=== PATIENT | male | born 1940 | race Caucasian/White ===

== ENCOUNTER 2020-10-15 07:32 | Outpatient (REF) | payer MEDICARE, SELFPAY ==
[2020-10-15 08:28] LABS: MANUAL DIFF FLAG NO
[2020-10-15 08:31] LABS: Basophils Absolute Auto 0.1 X10*3/uL (0.0-0.2); Basophils Percent Auto 0.8 % (0-2); Eosinophils Absolute Auto 0.2 X10*3/uL (0.0-0.4); Eosinophils Percent Auto 2.4 % (0-4); Hematocrit 44.3 % (42-52); Hemoglobin 14.6 g/dl (14.0-18.0); Imm Gran Abs Auto 0.02 X10*3/uL (0.00-0.03); Imm Gran Pct Auto 0.3 % (0.0-0.4); Lymphocytes Absolute Auto 2.1 X10*3/uL (1.2-4.9); Lymphocytes Percent Auto 34.4 % (20-40); Mean Corpuscular Hemoglobin 29.9 pg (27.0-33.0); Mean Corpuscular Volume 90.8 fL (80-98); Mean Platelet Volume 9.8 fL (9.4-12.4); Monocytes Absolute Auto 0.7 X10*3/uL (0.1-1.2); Monocytes Percent Auto 10.6 % (2-11); Neutrophils Absolute Auto 3.2 X10*3/uL (2.0-8.3); Neutrophils Percent Auto 51.5 % (45-73); Platelet Count 156 X10*3/uL (160-400); Red Blood Count 4.88 X10*6/uL (4.60-5.80); Red Cell Distribution Width 13.5 % (11.0-16.0); White Blood Count 6.2 X10*3/uL (4.8-10.8)
[2020-10-15 08:41] LABS: Estimated Average Glucose 108 mg/dL; Hemoglobin A1c % 5.4 %
[2020-10-15 08:54] LABS: Alanine Aminotransferase 12 U/L (0-40); Albumin Level 4.2 g/dL (3.5-5.0); Alkaline Phosphatase 88 U/L (39-117); Anion Gap 11 (12-20); Aspartate Amino Transferase 11 U/L (5-37); Bilirubin Total 0.8 mg/dL (0.0-1.0); Blood Urea Nitrogen 24 mg/dL (9-16); Calcium 9.5 mg/dL (8.4-10.2); Carbon Dioxide 29 mmol/L (22-29); Chloride 104 mmol/L (96-108); Cholesterol 141 mg/dL; Estimated Glomerular Filt Rate 53; Glucose Fasting 102 mg/dL (60-99); HDL Cholesterol 32 mg/dL; LDL Cholesterol Calculated 78 mg/dl; Potassium 4.1 mmol/l (3.3-5.1); Sodium 140 mmol/L (135-145); Total Protein 7.1 g/dL (6.5-8.0); Triglycerides 157 mg/dL
[2020-10-15 09:15] LABS: Prostate Specific Antigen Scr 1.55 ng/mL (<0.05-4.0)
[2020-10-15 11:50] LABS: Glucose Urine UA NEG (NEG); Leukocyte Esterase Urine NEG (NEG); Nitrite Urine NEG (NEG); Specific Gravity - Urine 1.025 (1.005-1.025); Urine Blood NEG (NEG); Urine Ketones NEG (NEG); Urine Protein NEG (NEG-TRACE)
[2020-10-15 11:53] LABS: Appearance Urine CLEAR; Color Urine YELLOW
[2020-10-15 12:11] LABS: Creatinine Urine 159.48 mg/dL; Microalbum/Creatinine Ratio Ur 4.3 ug/mg cr
== END 2020-10-15 07:33 | disposition home or self-care (01) ==
LOC: HO.LAB 07:32
PROVIDERS: Visit Provider Internal Medicine
DX: I10 Essential (primary) hypertension (principal); D69.6 Thrombocytopenia, unspecified; E78.6 Lipoprotein deficiency; R79.9 Abnormal finding of blood chemistry, unspecified; E11.65 Type 2 diabetes mellitus with hyperglycemia
CPT/HCPCS: 36415; 80053; 80061; 81003; 82043; 83036; 84153; 85025

== ENCOUNTER 2021-05-07 10:09 | Outpatient (REF) | payer MEDICARE, SELFPAY ==
[2021-05-07 11:11] LABS: Uric Acid 9.4 mg/dL (3.4-7.0)
== END 2021-05-07 10:10 | disposition home or self-care (01) ==
LOC: HO.LNP 10:09
PROVIDERS: Visit Provider Internal Medicine
DX: Z87.39 Personal history of other diseases of the musculoskeletal system and connective tissue (principal)
CPT/HCPCS: 84550

== ENCOUNTER 2021-08-30 15:08 | Outpatient (REF) | payer MEDICARE, SELFPAY ==
--- NOTE | ~2021-08-30 | XR_ITS ---
EXAMINATION: XR CHEST CLINICAL INFORMATION: Covid 19 COMPARISON: None TECHNIQUE: 2 views of the chest were obtained. FINDINGS: The lungs are well expanded. Mild patchy opacities at the lung bases. No pleural effusion. No edema. No pneumothorax. The cardiomediastinal silhouette is within normal limits. Degenerative changes throughout the spine. XR/XR chest 2V IMPRESSION: Mild patchy basilar opacities could be infectious or inflammatory.
== END 2021-08-30 15:09 | disposition home or self-care (01) ==
LOC: HO.XRAY 15:08
PROVIDERS: PCP Internal Medicine; Visit Provider Internal Medicine
DX: U07.1 COVID-19 (principal)
CPT/HCPCS: 71046

== ENCOUNTER 2021-09-16 15:07 | Outpatient (REF) | payer MEDICARE, SELFPAY ==
--- NOTE | ~2021-09-16 | XR_ITS ---
EXAMINATION: XR CHEST CLINICAL INFORMATION: Covid infection COMPARISON: Previous chest x-ray 08/30/2021 TECHNIQUE: 2 views of the chest were obtained. FINDINGS: The cardiac and mediastinal contours are stable. There may be a small esophageal hernia. The previously identified increased opacities at the lung bases appear slightly improved. The lungs are otherwise clear. There is no pleural effusion or pneumothorax. There are degenerative changes of the spine and curvature of the lower thoracic and upper lumbar spine to the left. XR/XR chest 2V IMPRESSION: Slightly improved bibasilar opacities from August 2021 exam.
== END 2021-09-16 15:08 | disposition home or self-care (01) ==
LOC: HO.XRAY 15:07
PROVIDERS: PCP Internal Medicine; Visit Provider Internal Medicine
DX: U07.1 COVID-19 (principal)
CPT/HCPCS: 71046

== ENCOUNTER 2021-11-20 14:09 | Outpatient (REF) | payer MEDICARE, SELFPAY ==
--- NOTE | ~2021-11-20 | XR_ITS ---
EXAMINATION: XR CHEST CLINICAL INFORMATION: COVID-19. COMPARISON: 09/16/2021 TECHNIQUE: 2 views of the chest were obtained. FINDINGS: There is improvement in bibasilar disease with no new acute parenchymal disease identified. No pneumothorax or pleural effusion. Heart normal size. No evidence of pulmonary edema. Multilevel degenerative disc disease is seen within the thoracic spine. XR/XR chest 2V IMPRESSION: No significant disease appreciated.
== END 2021-11-20 14:10 | disposition home or self-care (01) ==
LOC: HO.XRAY 14:09
PROVIDERS: PCP Internal Medicine; Visit Provider Internal Medicine
DX: U07.1 COVID-19 (principal)
CPT/HCPCS: 71046

== ENCOUNTER 2021-11-21 10:40 | Outpatient (REF) | payer MEDICARE, SELFPAY ==
[2021-11-21 10:46] LABS: MANUAL DIFF FLAG NO
[2021-11-21 11:14] LABS: Basophils Absolute Auto 0.1 X10*3/uL (0.0-0.2); Basophils Percent Auto 0.9 % (0-2); Eosinophils Absolute Auto 0.4 X10*3/uL (0.0-0.4); Eosinophils Percent Auto 5.3 % (0-4); Hematocrit 45.6 % (42.0-52.0); Hemoglobin 14.7 g/dl (14.0-18.0); Imm Gran Abs Auto 0.02 X10*3/uL (0.00-0.03); Imm Gran Pct Auto 0.3 % (0.0-0.4); Lymphocytes Percent Auto 28.9 % (20-40); Mean Corpuscular HGB Conc 32.2 g/dl (31.0-36.0); Mean Corpuscular Hemoglobin 30.3 pg (27.0-33.0); Monocytes Absolute Auto 0.9 X10*3/uL (0.1-1.2); Neutrophils Absolute Auto 3.5 x10*3/uL (2.0-8.3); Neutrophils Percent Auto 51.6 % (45-73); Platelet Count 175 X10*3/uL (160-400); Red Blood Count 4.85 X10*6/uL (4.60-5.80); Red Cell Distribution Width 13.8 % (11.0-16.0); White Blood Count 6.8 X10*3/uL (4.8-10.8)
[2021-11-21 11:22] LABS: Appearance Urine CLEAR; Color Urine YELLOW; Glucose Urine UA 100 MG/DL (NEG); Leukocyte Esterase Urine NEG (NEG); Nitrite Urine NEG (NEG); PH 5.5 (5.0-8.0); Specific Gravity - Urine >= 1.030 (1.005-1.025); Urine Blood NEG (NEG); Urine Ketones NEG (NEG); Urine Protein NEG (NEG-TRACE)
[2021-11-21 11:29] LABS: Estimated Average Glucose 105 mg/dL; Hemoglobin A1c % 5.3 %
[2021-11-21 11:49] LABS: Creatinine Urine 224.96 mg/dL; Microalbum/Creatinine Ratio Ur 12.8 ug/mg cr
[2021-11-21 12:00] LABS: PSA,Total (Free>4and<10) 1.46 ng/mL (0.00-4.00)
[2021-11-21 12:02] LABS: Alanine Aminotransferase 15 U/L (0-40); Albumin Level 4.1 g/dL (3.5-5.0); Alkaline Phosphatase 87 U/L (39-117); Anion Gap 13 (12-20); Aspartate Amino Transferase 12 U/L (5-37); Bilirubin Total 0.5 mg/dL (0.0-1.0); Blood Urea Nitrogen 19 mg/dL (9-16); Calcium 9.8 mg/dL (8.4-10.2); Carbon Dioxide 26 mmol/L (22-29); Chloride 106 mmol/L (96-108); Cholesterol 151 mg/dL; Estimated Glomerular Filt Rate 55; Glucose Fasting 98 mg/dL (60-99); HDL Cholesterol 30 mg/dL; LDL Cholesterol Calculated 85 mg/dl; Sodium 141 mmol/L (135-145); Triglycerides 182 mg/dL
== END 2021-11-21 10:41 | disposition home or self-care (01) ==
LOC: HO.LNP 10:40
PROVIDERS: Visit Provider Internal Medicine
DX: I10 Essential (primary) hypertension (principal); D69.6 Thrombocytopenia, unspecified; E78.6 Lipoprotein deficiency; R79.9 Abnormal finding of blood chemistry, unspecified; E11.65 Type 2 diabetes mellitus with hyperglycemia; Z12.5 Encounter for screening for malignant neoplasm of prostate
CPT/HCPCS: 80053; 80061; 81003; 82043; 83036; 84153; 85025

== ENCOUNTER 2022-02-20 16:29 | Outpatient (REF) | payer MEDICARE, SELFPAY ==
[2022-02-20 16:33] LABS: MANUAL DIFF FLAG NO
[2022-02-20 16:54] LABS: Basophils Absolute Auto 0.1 X10*3/uL (0.0-0.2); Basophils Percent Auto 0.8 % (0-2); Eosinophils Absolute Auto 0.1 X10*3/uL (0.0-0.4); Eosinophils Percent Auto 1.2 % (0-4); Hematocrit 47.6 % (42.0-52.0); Hemoglobin 15.5 g/dl (14.0-18.0); Imm Gran Abs Auto 0.03 X10*3/uL (0.00-0.03); Imm Gran Pct Auto 0.3 % (0.0-0.4); Lymphocytes Absolute Auto 2.8 X10*3/uL (1.2-4.9); Lymphocytes Percent Auto 31.2 % (20-40); Mean Corpuscular HGB Conc 32.6 g/dl (31.0-36.0); Mean Corpuscular Hemoglobin 30.5 pg (27.0-33.0); Mean Corpuscular Volume 93.7 fL (80.0-98.0); Mean Platelet Volume 10.3 fL (9.4-12.4); Monocytes Absolute Auto 0.8 X10*3/uL (0.1-1.2); Monocytes Percent Auto 8.6 % (2-11); Neutrophils Absolute Auto 5.1 x10*3/uL (2.0-8.3); Neutrophils Percent Auto 57.9 % (45-73); Platelet Count 165 X10*3/uL (160-400); Red Blood Count 5.08 X10*6/uL (4.60-5.80); Red Cell Distribution Width 13.7 % (11.0-16.0); White Blood Count 8.8 X10*3/uL (4.8-10.8)
== END 2022-02-20 16:30 | disposition home or self-care (01) ==
LOC: HO.LNP 16:29
PROVIDERS: Visit Provider Internal Medicine
DX: D69.6 Thrombocytopenia, unspecified (principal)
CPT/HCPCS: 85025

== ENCOUNTER 2022-04-24 09:23 | Outpatient (REF) | payer MEDICARE, SELFPAY ==
--- NOTE | ~2022-04-24 | XR_ITS ---
EXAMINATION: XR SHOULDER, LEFT CLINICAL INFORMATION: Pain left shoulder COMPARISON: None TECHNIQUE: AP external rotation, Grashey, scapular Y, and axillary views of the left shoulder. FINDINGS: There is severe loss of glenohumeral joint space with moderate inferior periarticular spurring. The AC joint space is preserved. No visible acute fracture, dislocation or subluxation. No loose bodies or bony erosive changes. There is mild osteopenia. XR/XR shoulder LT min 2V IMPRESSION: Severe degenerative changes with periapical spurring left glenohumeral joint space. No visible acute fracture or dislocation seen.
== END 2022-04-24 09:24 | disposition home or self-care (01) ==
LOC: HO.XRAY 09:23
PROVIDERS: PCP Internal Medicine; Visit Provider Physical Medicine & Rehabilitation
DX: M25.512 Pain in left shoulder (principal)
CPT/HCPCS: 73030

== ENCOUNTER 2022-11-21 10:52 | Outpatient (REF) | payer MEDICARE, SELFPAY ==
[2022-11-21 10:56] LABS: MANUAL DIFF FLAG NO
[2022-11-21 12:23] LABS: Basophils Absolute Auto 0.1 X10*3/uL (0.0-0.2); Basophils Percent Auto 1.1 % (0-2); Eosinophils Absolute Auto 0.2 X10*3/uL (0.0-0.4); Eosinophils Percent Auto 2.9 % (0-4); Hematocrit 43.1 % (42.0-52.0); Hemoglobin 14.1 g/dl (14.0-18.0); Imm Gran Abs Auto 0.02 X10*3/uL (0.00-0.03); Imm Gran Pct Auto 0.3 % (0.0-0.4); Lymphocytes Absolute Auto 1.9 X10*3/uL (1.2-4.9); Lymphocytes Percent Auto 30.6 % (20-40); Mean Corpuscular HGB Conc 32.7 g/dl (31.0-36.0); Mean Corpuscular Hemoglobin 30.3 pg (27.0-33.0); Mean Corpuscular Volume 92.5 fL (80.0-98.0); Mean Platelet Volume 9.8 fL (9.4-12.4); Monocytes Absolute Auto 0.6 X10*3/uL (0.1-1.2); Monocytes Percent Auto 10.1 % (2-11); Neutrophils Absolute Auto 3.4 x10*3/uL (2.0-8.3); Platelet Count 158 X10*3/uL (160-400); Red Blood Count 4.66 X10*6/uL (4.60-5.80); Red Cell Distribution Width 13.7 % (11.0-16.0); White Blood Count 6.1 X10*3/uL (4.8-10.8)
[2022-11-21 12:26] LABS: Appearance Urine Clear; Color Urine Yellow; Glucose Urine UA Negative (Negative); Leukocyte Esterase Urine Negative (Negative); Nitrite Urine Negative (Negative); PH 5.5 (5.0-9.0); Specific Gravity - Urine 1.015 (1.005-1.025); Urine Blood Negative (Negative); Urine Ketones Negative (Negative); Urine Protein Negative (Neg-Trace)
[2022-11-21 12:42] LABS: Estimated Average Glucose 105 mg/dL; Hemoglobin A1c % 5.3 %
[2022-11-21 12:47] LABS: Alanine Aminotransferase 14 U/L (0-40); Albumin Level 4.1 g/dL (3.5-5.0); Alkaline Phosphatase 84 U/L (39-117); Anion Gap 14 (12-20); Aspartate Amino Transferase 12 U/L (5-37); Bilirubin Total 0.9 mg/dL (0.0-1.0); Blood Urea Nitrogen 27 mg/dL (9-16); Calcium 9.4 mg/dL (8.4-10.2); Carbon Dioxide 25 mmol/L (22-29); Chloride 108 mmol/L (96-108); Cholesterol 133 mg/dL; Estimated Glomerular Filt Rate 53; Glucose Fasting 99 mg/dL (60-99); HDL Cholesterol 33 mg/dL; LDL Cholesterol Calculated 73 mg/dl; Sodium 143 mmol/L (135-145); Total Protein 6.7 g/dL (6.5-8.0); Triglycerides 139 mg/dL
[2022-11-21 13:03] LABS: PSA,Total (Free>4and<10) 1.29 ng/mL (0.00-4.00)
[2022-11-21 13:49] LABS: Creatinine Urine 99.41 mg/dL; Microalbumin Urine < 5.0 mg/L
== END 2022-11-21 10:53 | disposition home or self-care (01) ==
LOC: HO.LNP 10:52
PROVIDERS: Visit Provider Internal Medicine
DX: Z00.00 Encounter for general adult medical examination without abnormal findings (principal); Z12.5 Encounter for screening for malignant neoplasm of prostate; E11.65 Type 2 diabetes mellitus with hyperglycemia; I10 Essential (primary) hypertension; D69.6 Thrombocytopenia, unspecified
CPT/HCPCS: 80053; 80061; 81003; 82043; 83036; 84153; 85025

== ENCOUNTER 2023-02-27 07:07 | Outpatient (REF) | payer MEDICARE, SELFPAY ==
--- NOTE | ~2023-02-27 | CT_ITS ---
EXAMINATION: CT CHEST WITHOUT CONTRAST CLINICAL INFORMATION: Lung nodule COMPARISON: Previous chest x-ray October 2021 and lung windows from abdominal and pelvic CT October 2016 TECHNIQUE: Multidetector volumetric CT imaging of the chest was done. Axial MIP volume rendering provided. Sagittal and coronal reformatted images were obtained. This CT examination was performed using dose optimization techniques as appropriate, variously including the following: *Automated exposure control *Adjustment of mA and/or kV according to patient size (this includes techniques or standardized protocols for targeted exams where dose is matched to indication/reason for exam; i.e. extremities or head) *Use of iterative reconstruction technique DLP: 180 mGy-cm FINDINGS: LUNGS: There are innumerable small 1 to 2 mm solid or semisolid upper lobe nodules. For example largest 2 mm left upper lobe nodule axial image 116 series 5. There is a 4 mm peripheral or subpleural left lower lobe nodule axial image 407 series 5. This is similar to previous abdominal and pelvic CT from 2017 suggestive of a benign finding. There is a 3 mm peripheral or subpleural right middle lobe nodule axial image 397 series 5. In retrospect, this is similar to 2017 CT as well. There are slight increased peripheral reticular markings, increased peripheral attenuation and some traction bronchiolectasis in the lower lobes. Findings are questionable for mild interstitial lung disease. MEDIASTINUM: Tortuous thoracic aorta. This dynamic otherwise normal. CORONARY ARTERY CALCIFICATION: Moderate PLEURA: There is no pleural effusion. No pleural mass or thickening. AXILLA: No lymphadenopathy. UPPER ABDOMEN: Cyst in the upper pole of the left kidney. No imaging follow-up recommended. Gallstones. OSSEOUS STRUCTURES: Severe degenerative changes of the spine and shoulders. CT/CT chest wo IV con IMPRESSION: Stable right middle and left lower lobe peripheral or subpleural nodules from [address] scan suggesting a benign etiology. Innumerable small 1 to 2 mm predominantly upper lobe nodules. According to the UPDATED 2017 Fleischner Society recommendations, the advised follow-up imaging for less than 6 mm solid nodule: Low risk, no chest CT follow-up and high risk, optional chest CT follow-up in one year. This may be related to airways disease. Question mild peripheral interstitial lung disease. Fleischner guidelines were followed.
== END 2023-02-27 07:08 | disposition home or self-care (01) ==
LOC: HO.CT 07:07
PROVIDERS: PCP Internal Medicine; Visit Provider Internal Medicine
DX: R91.1 Solitary pulmonary nodule (principal)
CPT/HCPCS: 71250

== ENCOUNTER 2023-04-21 08:08 | Outpatient (REF) | payer MEDICARE, SELFPAY ==
--- NOTE | ~2023-04-21 | FL_ITS ---
EXAMINATION: XR GI SERIES CLINICAL INFORMATION: Dysphagia COMPARISON: None available. TECHNIQUE: Routine upper GI air-contrast study was performed in upright and lying position. FINDINGS: Following oral administration of thick barium and effervescent granules there is normal propagation bolus from the oral cavity through the pharynx into esophagus without any evidence of obstruction, narrowing or stricture. On placing patient supine and prone lying the course, caliber and peristalsis of the stomach, duodenal bulb and sweep is normal. The mucosal pattern of the stomach and the duodenum is normal.. There is a moderate gastroesophageal with small size hiatal hernia. FLUOROSCOPY TIME: 1.4 minutes DOSE AREA PRODUCT: 27.887 uGy-m2 (microgray-meter squared) Images: 42 FL/FL upper GI series IMPRESSION: 1. Moderate gastroesophageal reflux with small size hiatal hernia. 2. There is no obstruction or narrowing of the stomach. 3. No mucosal abnormality seen.
== END 2023-04-21 08:09 | disposition home or self-care (01) ==
LOC: HO.XRAY 08:08
PROVIDERS: PCP Internal Medicine; Visit Provider Internal Medicine
DX: R13.19 Other dysphagia (principal)
CPT/HCPCS: 74240

== ENCOUNTER 2023-05-12 08:09 | Outpatient (REF) | payer MEDICARE, SELFPAY ==
--- NOTE | ~2023-05-12 | XR_ITS ---
EXAMINATION: XR KNEE, LEFT CLINICAL INFORMATION: Left knee pain. COMPARISON: None available. TECHNIQUE: Three views of the left knee. FINDINGS: No acute fracture or dislocation is evident. Joint spaces are maintained. There is mild spurring about the lateral patellofemoral joint. There is some spurring seen about sites of insertion of quadriceps and patellar tendons on the patella. There appears to be a small amount of suprapatellar fat streaking without significant fluid collection. Prominent vascular calcifications are seen. XR/XR knee LT 3V IMPRESSION: Mild patellofemoral joint degenerative change.
== END 2023-05-12 08:10 | disposition home or self-care (01) ==
LOC: HO.HOSX 08:09
PROVIDERS: Visit Provider Orthopaedic Surgery
DX: M25.562 Pain in left knee (principal)
CPT/HCPCS: 73562; 99202

== ENCOUNTER 2023-05-12 13:47 | Outpatient (AMB) | payer MEDICARE, SELFPAY ==
--- NOTE | 2023-05-12 14:05 | A.OFFVIS_ITS ---
Intake Vital Signs 05/12/23 14:08 Height 5 ft 2 in Weight 166 lb BMI 30.4 Intake Visit Reasons: New Pt - Left Knee Pain Intake Note: Levy an 82 year old male presents today as a new patient for an evaluation of left knee. Patient reports for about 2 months intermittent swelling to the medial and posterior aspect of knee that makes it difficult to move. States pain wraps around his knee. He was seen by his PCP where he was told of a lump at his posterior aspect of knee. Finds some relief with Tylenol arthritis and ibuprofen as needed. Denies injury, numbness or tingling. No previous treatment. The patient states that his symptoms have gotten somewhat better over the last week. He has had cortisone injections given into his low back which gave him fairly good relief in the past. 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 Physical Exam Vital Signs: BMI result Body Mass Index 30.4 Const Other: Well-nourished well-developed very friendly female awake alert and oriented x3 in no acute distress Extrem Other: Bilateral lower extremity examination shows good capillary refill, no skin lesions noted, normal sensation light touch Left knee examination shows a mild effusion, mild crepitus with range of motion, tenderness along his medial joint line, positive Matt's test, no instability Results Reviewed Results Reviewed: X-rays of the patient's left knee taken today show mild to moderate diffuse joint space narrowing most significant in the medial compartment, no acute Assessment & Plan Assessment & Plan (1) Left knee pain: Code(s): M25.562 - Pain in left knee Plan: Mr. Tovar presents with left knee pain and mechanical symptoms due to degenerative joint disease as well as possible tearing of his medial meniscus. I had a lengthy discussion with the patient regarding the treatment options. At this point the patient's symptoms are improving with activity modifications. We will hold off on a cortisone injection. He will follow up with me on an as- needed basis should his symptoms not plateau at an unacceptable level over the next few weeks. Feel free to call me at any time should questions regarding his orthopedic management arise. Thank you very much for asking me to see this very friendly gentleman. I spent 22 minutes in reviewing the patient's records and imaging studies, seeing the patient and documenting in the medical record. Orders: Orders XR knee LT 3V Today M25.562 - Pain in left knee Coding Level of Care Code New Pt Level 2 (07058) Diagnoses Left knee pain M25.562
[2023-05-12 14:08] VITALS: BMI 30.4
== END 2023-05-12 14:49 | disposition home or self-care (01) ==
PROVIDERS: PCP Internal Medicine; Visit Provider Orthopaedic Surgery
DX: M25.562 Pain in left knee (principal)
CPT/HCPCS: 99202

== ENCOUNTER 2023-11-24 11:14 | Outpatient (REF) | payer MEDICARE, SELFPAY ==
[2023-11-24 11:18] LABS: MANUAL DIFF FLAG NO
[2023-11-24 11:37] LABS: Basophils Absolute Auto 0.1 X10*3/uL (0.0-0.2); Basophils Percent Auto 0.8 % (0-2); Eosinophils Absolute Auto 0.2 X10*3/uL (0.0-0.4); Eosinophils Percent Auto 2.8 % (0-4); Hematocrit 43.2 % (42.0-52.0); Imm Gran Abs Auto 0.02 X10*3/uL (0.00-0.03); Imm Gran Pct Auto 0.3 % (0.0-0.4); Lymphocytes Absolute Auto 1.9 X10*3/uL (1.2-4.9); Lymphocytes Percent Auto 31.3 % (20-40); Mean Corpuscular HGB Conc 32.4 g/dl (31.0-36.0); Mean Corpuscular Hemoglobin 30.5 pg (27.0-33.0); Mean Corpuscular Volume 94.1 fL (80.0-98.0); Mean Platelet Volume 10.1 fL (9.4-12.4); Monocytes Absolute Auto 0.6 X10*3/uL (0.1-1.2); Monocytes Percent Auto 10.2 % (2-11); Neutrophils Absolute Auto 3.3 x10*3/uL (2.0-8.3); Neutrophils Percent Auto 54.6 % (45-73); Platelet Count 160 X10*3/uL (160-400); Red Blood Count 4.59 X10*6/uL (4.60-5.80); Red Cell Distribution Width 13.8 % (11.0-16.0); White Blood Count 6.1 X10*3/uL (4.8-10.8)
[2023-11-24 11:43] LABS: Appearance Urine Clear; Color Urine Yellow; Glucose Urine UA Negative (Negative); Leukocyte Esterase Urine Negative (Negative); Nitrite Urine Negative (Negative); PH 5.5 (5.0-9.0); Specific Gravity - Urine 1.025 (1.005-1.025); Urine Blood Negative (Negative); Urine Ketones Negative (Negative); Urine Protein Negative (Neg-Trace)
[2023-11-24 11:48] LABS: Estimated Average Glucose 100 mg/dL; Hemoglobin A1c % 5.1 % (<6.0)
[2023-11-24 11:52] LABS: Alanine Aminotransferase 15 U/L (0-40); Albumin Level 4.1 g/dL (3.5-5.0); Alkaline Phosphatase 68 U/L (39-117); Anion Gap 11 (12-20); Aspartate Amino Transferase 16 U/L (5-37); Bilirubin Total 0.7 mg/dL (0.0-1.0); Blood Urea Nitrogen 27 mg/dL (9-16); Calcium 9.9 mg/dL (8.4-10.2); Carbon Dioxide 27 mmol/L (22-29); Chloride 107 mmol/L (96-108); Cholesterol 144 mg/dL (<200); Estimated Glomerular Filt Rate 50; Glucose Fasting 100 mg/dL (60-99); HDL Cholesterol 36 mg/dL (>40); LDL Cholesterol Calculated 83 mg/dL (<100); Potassium 4.1 mmol/L (3.3-5.1); Sodium 141 mmol/L (135-145); Total Protein 7.4 g/dL (6.5-8.0); Triglycerides 128 mg/dL (<150)
[2023-11-24 12:06] LABS: Bacteria Urine None Seen (None Seen); Hyaline Casts Urine 0-2 /LPF (0-2); RBC Urine 0-2 /HPF (0-2); Squamous Epithelial Cell Urine 0-2 /HPF (0-2); WBC Urine 0-5 /HPF (0-5)
[2023-11-24 12:12] LABS: PSA,Total (Free>4and<10) 1.46 ng/mL (0.00-4.00)
== END 2023-11-24 11:15 | disposition home or self-care (01) ==
LOC: HO.LNP 11:14
PROVIDERS: Visit Provider Internal Medicine
DX: Z00.00 Encounter for general adult medical examination without abnormal findings (principal); I10 Essential (primary) hypertension; D69.6 Thrombocytopenia, unspecified; E11.65 Type 2 diabetes mellitus with hyperglycemia; Z12.5 Encounter for screening for malignant neoplasm of prostate
CPT/HCPCS: 80053; 80061; 81001; 83036; 84153; 85025

== ENCOUNTER 2024-07-06 13:21 | Outpatient (AMB) | payer MEDICARE, SELFPAY ==
--- NOTE | 2024-07-06 13:31 | A.OFFVIS_ITS ---
Vital Signs 07/06/24 13:34 Height 5 ft 2 in Weight 156 lb BMI 28.5 Handedness Right Intake Visit Reasons: New Prob - Left elbow olecranon bursitis Intake Note: Levy is a 83 year old male who presents today for a new problem visit for his left elbow olecranon bursitis. He was referred by his PCP Dr. Canales. Patient states he noticed the lump on his elbow a few months ago due to how big it was. He expresses the lump is not bothering him at all but it is a concern. Palpitated the area, the lump is soft. Denies numbness and tingling. Allergies No Known Allergies Allergy (Verified 07/06/24 13:34) HPI HPI New Prob - Left elbow olecranon bursitis: Details: Patient is an 83-year-old man who presents for evaluation of painless left elbow swelling, ongoing for approximately 3-4 months. The patient reports that this area of swelling has increased in size significantly over that timeframe. Patient reports that he has not had any trauma or pain to this area either before or after the swelling started. The patient reports that he does not like how his elbow looks, and would like to explore any treatment options available to him. No other acute complaints or concerns at this time. 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 [employer] Physical Exam Vital Signs: BMI result Body Mass Index 28.5 Extrem Other: On inspection, there is noted to be a marked area of swelling on the olecranon process of the left elbow No erythema noted No lacerations, abrasions, open areas No evidence of infection Patient reports no tenderness to palpation about the olecranon process of the left elbow Patient has full flexion and extension of the left elbow without difficulty Distal sensation intact Capillary refill brisk Assessment & Plan Assessment & Plan (1) Olecranon bursitis of left elbow: Code(s): M70.22 - Olecranon bursitis, left elbow Category: Medical Plan 1. Olecranon bursitis of left elbow Ongoing for approximately 3-4 months Patient is educated about this condition Patient is educated about the typical recovery course Patient is informed that there is no acute or surgical intervention indicated for this condition Patient is educated that the mainstay of treatment for olecranon bursitis is gentle compression with an Federico bandage Patient is also informed that even with this compression, this condition can take weeks to even months to resolve Patient was provided with 2 Federico bandages in the clinic today, and is told that they are also available for sale at any [employer] or [employer] Patient is amenable to this plan Patient will follow-up as needed with any acute concerns Coding Level of Care Code Est Pt Level 3 (36385) Diagnoses Olecranon bursitis of left elbow M70.22
[2024-07-06 13:34] VITALS: BMI 28.5
== END 2024-07-06 14:03 | disposition home or self-care (01) ==
PROVIDERS: PCP Internal Medicine
DX: M70.22 Olecranon bursitis, left elbow (principal)
CPT/HCPCS: 99213

== ENCOUNTER → 2024-07-06 13:21 | Outpatient (BNVA) | payer MEDICARE, SELFPAY | PROVIDERS: PCP Internal Medicine | DX: M70.22 Olecranon bursitis, left elbow (principal) | CPT/HCPCS: 99212 ==

== ENCOUNTER 2024-11-25 10:55 | Outpatient (REF) | payer MEDICARE, SELFPAY ==
[2024-11-25 11:02] LABS: MANUAL DIFF FLAG NO
[2024-11-25 11:17] LABS: Basophils Absolute Auto 0.1 X10*3/uL (0.0-0.2); Basophils Percent Auto 1.2 % (0-2); Eosinophils Absolute Auto 0.3 X10*3/uL (0.0-0.4); Hemoglobin 13.6 g/dl (14.0-18.0); Imm Gran Abs Auto 0.02 X10*3/uL (0.00-0.03); Imm Gran Pct Auto 0.3 % (0.0-0.4); Lymphocytes Absolute Auto 1.9 X10*3/uL (1.2-4.9); Lymphocytes Percent Auto 28.2 % (20-40); Mean Corpuscular HGB Conc 32.4 g/dl (31.0-36.0); Mean Corpuscular Hemoglobin 30.6 pg (27.0-33.0); Mean Corpuscular Volume 94.6 fL (80.0-98.0); Mean Platelet Volume 9.6 fL (9.4-12.4); Monocytes Absolute Auto 0.8 X10*3/uL (0.1-1.2); Monocytes Percent Auto 11.2 % (2-11); Neutrophils Absolute Auto 3.7 x10*3/uL (2.0-8.3); Neutrophils Percent Auto 55.1 % (45-73); Platelet Count 171 X10*3/uL (160-400); Red Blood Count 4.44 X10*6/uL (4.60-5.80); Red Cell Distribution Width 13.8 % (11.0-16.0); White Blood Count 6.8 X10*3/uL (4.8-10.8)
[2024-11-25 11:19] LABS: Appearance Urine Clear; Color Urine Yellow; Glucose Urine UA Negative (Negative); Leukocyte Esterase Urine Negative (Negative); Nitrite Urine Negative (Negative); PH 5.5 (5.0-9.0); Urine Blood Negative (Negative); Urine Ketones Negative (Negative); Urine Protein Negative (Neg-Trace)
[2024-11-25 11:24] LABS: Bacteria Urine None Seen (None Seen); Hyaline Casts Urine 0-2 /LPF (0-2); RBC Urine 0-2 /HPF (0-2); Squamous Epithelial Cell Urine 0-2 /HPF (0-2); WBC Urine 0-5 /HPF (0-5)
[2024-11-25 11:27] LABS: Estimated Average Glucose 103 mg/dL; Hemoglobin A1C 119.0779 umol/L; Hemoglobin A1c % 5.2 % (<6.0); Total Hemoglobin (HGBA1C) 3626.9364 umol/L
[2024-11-25 11:42] LABS: Creatinine Urine 131.98 mg/dL; Microalbum/Creatinine Ratio Ur 10.6 ug/mg cr (<30)
[2024-11-25 12:26] LABS: Alanine Aminotransferase 12 U/L (0-40); Albumin Level 4.1 g/dL (3.5-5.0); Alkaline Phosphatase 69 U/L (39-117); Anion Gap 13 (12-20); Aspartate Amino Transferase 18 U/L (5-37); Bilirubin Total 0.6 mg/dL (0.0-1.0); Blood Urea Nitrogen 29 mg/dL (9-16); Calcium 9.9 mg/dL (8.4-10.2); Carbon Dioxide 25 mmol/L (22-29); Chloride 111 mmol/L (96-108); Cholesterol 135 mg/dL (<200); Estimated Glomerular Filt Rate 49; Glucose Fasting 96 mg/dL (60-99); HDL Cholesterol 36 mg/dL (>40); LDL Cholesterol Calculated 76 mg/dL (<100); Potassium 4.3 mmol/L (3.3-5.1); Sodium 145 mmol/L (135-145); Total Protein 7.4 g/dL (6.5-8.0); Triglycerides 118 mg/dL (<150)
[2024-11-25 12:41] LABS: PSA,Total (Free>4and<10) 1.64 ng/mL (0.00-4.00)
== END 2024-11-25 10:56 | disposition home or self-care (01) ==
LOC: HO.LNP 10:55
PROVIDERS: Visit Provider Internal Medicine
DX: Z00.00 Encounter for general adult medical examination without abnormal findings (principal); Z12.5 Encounter for screening for malignant neoplasm of prostate; I10 Essential (primary) hypertension; E78.6 Lipoprotein deficiency; D69.6 Thrombocytopenia, unspecified; E11.65 Type 2 diabetes mellitus with hyperglycemia
CPT/HCPCS: 80053; 80061; 81001; 82043; 82570; 83036; 84153; 85025

== ENCOUNTER 2024-12-02 15:15 | Outpatient (REF) | payer MEDICARE, SELFPAY ==
--- OUTSIDE RECORDS SUMMARY | 2024-12-02 15:17 | XMS_ITS | Patient Health Record ---
Author Organization [facility] Address [address] [place] [address] Care Team Providers Care Insole Stiffener Name Role Phone Ashkan Canales MD Primary Care Provider Derrell Landrum Unavailable [phone] ALLERGIES No Known Allergies REASON FOR REFERRAL No Information MEDICATIONS Medication SIG (Take, Route, Frequency, Duration) Notes Start Date End Date Status Irbesartan-hydroCHLOROthiaz mellisa 300-12.5 MG TAKE 1 TABLET BY MOUTH EVERY DAY Oral for 90 Active Pantoprazole Sodium 40 MG TAKE 1 TABLET BY MOUTH EVERY DAY Diagnosis Unavailable Oral for 90 Active SOCIAL HISTORY Tobacco Use: Social History Observation Description Date Details (start date - stop date) Never Smoker NA - NA Sex Assigned At : Social History Observation Description Sex Assigned At Unknown Tobacco Use/Smoking Question Answer Notes Patient is a nonsmoker Alcohol Screen Question Answer Notes Did you have a drink containing alcohol in the p ast year? No Points 0 Interpretation Negative PROBLEMS Problem Type ICD Code Onset Dates Problem Status W/U Status Risk SNOMED Code Notes Problem Gastroesophageal reflux disease, unspecified whether esophagitis present (K21.9) Active confirmed 650832081 Problem Esophageal spasm (K22.4) Active confirmed [id number] PLAN OF TREATMENT No Information Insurance Providers Payer Name Payer Address Payer Phone Subscriber Number Group Number Insured Name Patient Relationship to Insured Coverage Start Date Coverage End Date ALEJANDRO VERDUGO/KOTA CHILEL MEDICARE RAILRO[employer] MEDICARE [address] [address] [place] [address] [id number] STELLA RIOS Self - patient is the insured [employer] ATT[employer] CLAIMS [address] [place] [address] [id number] STELLA RIOS Self - patient is the insured MEDICAL (GENERAL) HISTORY Medical History History ICD Code Bladder cancer--treated via cystoscopy w ith Dr. Jovel Hypertension Kidney stones Denies IN,DM,CVA,Lung disease,renal dise ase Colonoscopy and upper endo with me in 14 05 Colonoscopy in 2017 at [facility] He describes a negative card iac workup with stress test at [facility] in 01/2023 Surgical History Surgery Date(Month/Year)
--- OUTSIDE RECORDS SUMMARY | 2024-12-02 15:17 | XMS_ITS ---
Author Organization Ashkan Canales MD Address [address] [place] [phone] Care Team Providers Care Medical Dosimetrist Name Role Phone Ashkan Canales Primary Care Provider Results Component Value Reference Range Notes Complete Blood Count Auto Di ff Reviewed date:11/27/2024 03:29:36 PM Interpretation: Performing Lab:[facility], [address] [place] [phone] Notes/Report: White Blood Count 6.8 4.8-10.8 X10*3/uL Red Blood Count 4.44 4.60-5.80 X10*6/uL Hemoglobin 13.6 14.0-18.0 g/dl Hematocrit 42.0 42.0-52.0 % Mean Corpuscular Volume 94.6 80.0-98.0 fL Mean Corpuscular Hemoglobin 30.6 27.0-33.0 pg Mean Corpuscular HGB Conc 32.4 31.0-36.0 g/dl Red Cell Distribution Width 13.8 11.0-16.0 % Platelet Count 171 160-400 X10*3/uL Mean Platelet Volume 9.6 9.4-12.4 fL Neutrophils Percent Auto 55.1 45-73 % Imm Gran Pct Auto 0.3 0.0-0.4 % Lymphocytes Percent Auto 28.2 20-40 % Monocytes Percent Auto 11.2 2-11 % Eosinophils Percent Auto 4.0 0-4 % Basophils Percent Auto 1.2 0-2 % NRBC Pct Auto 0.0 0.0-0.2 /100WBC Neutrophils Absolute Auto 3.7 2.0-8.3 x10*3/u L Imm Gran Abs Auto 0.02 0.00-0.03 X10*3/uL Lymphocytes Absolute Auto 1.9 1.2-4.9 X10*3/u L Monocytes Absolute Auto 0.8 0.1-1.2 X10*3/uL Eosinophils Absolute Auto 0.3 0.0-0.4 X10*3/u L Basophils Absolute Auto 0.1 0.0-0.2 X10*3/uL NRBC Abs Auto 0.000 0.0-0.012 X10*3/uL [facility] [place]. Panel Fa st Reviewed date:11/25/2024 04:24:14 PM Interpretation: Performing Lab:[facility], [address] [place] [phone] Notes/Report: Sodium 145 135-145 mmol/L Potassium 4.3 3.3-5.1 mmol/L Chloride 111 96-108 mmol/L Carbon Dioxide 25 22-29 mmol/L Anion Gap 13 12-20 Blood Urea Nitrogen 29 9-16 mg/dL Creatinine 1.38 0.5-1.4 mg/dL Estimated Glomerular Filt Rate 49 Chronic Kidney Disease: Estimated GFR < 60 mL/min/1.73m2 Severe Kidney Disease: Estimated GFR < 15 mL/min/1.73m2 Glucose Fasting 96 60-99 mg/dL Calcium 9.9 8.4-10.2 mg/dL Bilirubin Total 0.6 0.0-1.0 mg/dL Aspartate Amino Transferase 18 5-37 U/L Alanine Aminotransferase 12 0-40 U/L Total Protein 7.4 6.5-8.0 g/dL Albumin Level 4.1 3.5-5.0 g/dL Alkaline Phosphatase 69 39-117 U/L Lipid Panel Reviewed date:11/25/2024 12:28:11 PM Interpretation: Performing Lab:[facility], [address] [place] [phone] Notes/Report: Triglycerides 118 <150 mg/dL Desirable Triglyceride: less than 150 mg/dL Borderline High Triglyceride 150-199 mg/dL High Triglyceride: 200-499 mg/dL Very High Triglyceride: greater than or equal to 5OO mg/dL Cholesterol 135 <200 mg/dL Desirable Cholesterol: less than 200 mg/dL Borderline High Cholesterol: 200-239 mg/dL High Cholesterol: greater than 239 mg/dL LDL Cholesterol Calculated 76 <100 mg/dL Desirable LDL: less than 100 mg/dL Near Optimal/Above Optimal LDL: 110-129 mg/dL Borderline High LDL: 130-159 mg/dL High LDL: 160-189 mg/dL Very High LDL: greater than or equal to 190 mg/dL HDL Cholesterol 36 >40 mg/dL Desirable HDL: greater than 40 mg/dL Note: This HDL assay may give artificially low results in patients with liver disease. PSA,Total (Free>4and<10) Reviewed date:11/25/2024 04:20:49 PM Interpretation: Performing Lab:[facility], [address] [place] [phone] Notes/Report: PSA,Total (Free>4and<10) 1.64 0.00-4.00 ng/mL A Free PSA was not performed: The percentage of Free PSA can be used to enhance the differentiation of prostate cancer from benign prostatic disease in subjects whose PSA levels are between 4.0 and 10.0 ng/mL. For subjects whose PSA levels are below 4.0 or above 10.0 ng/mL, the risk of prostate cancer is determined on the basis of the PSA alone. Therefore the % Free PSA is recommended only for those subjects whose PSA levels are between 4.0 and 10.0 ng/mL. PSA methodology: Johnston Alinity i Chemiluminescent Microparticle Immunoassay (CMIA) Microalbumin, Random Reviewed date:11/25/2024 12:34:11 PM Interpretation: Performing Lab:[facility], [address] [place] [phone] Notes/Report: Creatinine Urine 131.98 Microalbumin Urine 14.0 Microalbum/Creatinine Ratio Ur 10.6 <30 ug/mg cr Albumin/Creatinine Ratio Reference Ranges: Normal: < 30 ug/mg creatinine Microalbuminuria: 30 - 300 ug/mg creatinine Clinical Albuminuria: > 300 ug/mg creatinine Hemoglobin A1c Reviewed date:11/25/2024 04:19:54 PM Interpretation: Performing Lab:[facility], [address] [place] [phone] Notes/Report: Hemoglobin A1c % 5.2 <6.0 % Hemoglobin A1C Reference Range Adults: 4.8 - 6.0 % Non diabetic: < 6.0 % Goal: < 7.0 % Additional Action Suggested: > 8.0 % Note: Hemoglobin A1c results are invalid for patients with abnormal amounts of HbF. Blood transfusions may impact the HbA1c concentration in the patient sample. Estimated Average Glucose 103 eAG = Estimated average glucose which is %A1C expressed as average glucose, using the formula of the A5K-Ybnftcx Average Glucose study (ADAG), Diabetes Care, Vol.31,#8, 2007 UA ClnCatch+Micro w/rflx Cul t Reviewed date:11/25/2024 04:24:56 PM Interpretation: Performing Lab:[facility], [address] [place] [phone] Notes/Report: Urine, Clean Catch Color Urine Yellow Appearance Urine Clear PH 5.5 5.0-9.0 Glucose Urine UA Negative Negative mg/dL Urine Blood Negative Negative Specific [place] - Urine 1.020 1.005-1.025 Urine Protein Negative Neg-Trace mg/dL Urine Ketones Negative Negative mg/dL Nitrite Urine Negative Negative Leukocyte Esterase Urine Negative Negative RBC Urine 0-2 0-2 /HPF WBC Urine 0-5 0-5 /HPF Squamous Epithelial Cell Urine 0-2 0-2 /HPF Bacteria Urine None Seen None Seen Hyaline Casts Urine 0-2 0-2 /LPF REASON FOR VISIT FASTING LABS Encounters Encounter Location Date Provider Diagnosis Ashkan Canales MD [address] [place], [place] [phone] 11/25/2024 Ashkan Canales Blood tests for rout ine general physical examination Z00.00 ; Essential hypertension I10 ; Low HDL (under 40) E78.6 ; Thrombocytopenia D69.6 and Type 2 diabetes mellitus with hyperglycemia E11.65 Assessments Encounter Date Diagnosis (ICD Code) Assessment Notes Treatment Notes Treatment Clinical Notes Section Notes 11/25/2024 Blood tests for routine general physical examination (ICD-10 - Z00.00) 11/25/2024 Essential hypertension (ICD-10 - I10) 11/25/2024 Low HDL (under 40) (ICD-10 - E78.6) 11/25/2024 Thrombocytopenia (ICD-10 - D69.6) 11/25/2024 Type 2 diabetes mellitus with hyperglycemia (ICD-10 - E11.65) Plan Of Treatment Next Appt Details Provider Name:Ashkan gonzalez, 03/02/2025 07:30:00 AM, [address], Suite [facility], [place], [place], [phone], Provider Name:Ashkan gonzalez, 03/10/2025 09:15:00 AM, [address], Suite [facility], [place], [place], [phone], Provider Name:Ashkan gonzalez, 12/01/2025 07:30:00 AM, [address], Suite [facility], [place], [place], [phone], Provider Name:Ashkan gonzalez, 12/08/2025 09:30:00 AM, [address], Suite [facility], [place], [place], [phone], Progress Notes * Levy RIOS NDOB: 0 (84 yo M)Acc No.[id number]:11/25/2024 Progress Note Patient:?Levy RIOS N Provider:?Ashkan Canales MD :1940???Age:84 Y???Sex:Male Omid e:11/25/2024 Address: [address], [id number] Subjective: * Chief Complaints: * ???1. FASTING LABS. * Medical History:? Objective: * Vitals:? Assessment: * Assessment: 1.?Blood tests for routine g eneral physical examination - Z00.00 (Primary)???2.?Essential hypertension - I10???3.?Low HDL (under 40) - E78.6???4.?Thrombocytopenia - D69.6???5.?Type 2 diabetes mellitus with hyperglycemia - E11.65??? Plan: * Treatment: 2.?Essential hypertension?LAB: Complete Blood Count Auto Diff (Collection Date & Time - 11/25/2024 07:45 AM) ?LAB: [facility] [place]. Panel Fast (Collection Date & Time - 11/25/2024 07:45 AM) ?LAB: Lipid Panel (Collection Date & Time - 11/25/2024 07:45 AM) ?LAB: PSA,Total (Free>4and<10) (Collection Date & Time - 11/25/2024 07:45 AM) ?LAB: Microalbumin, Random (Collection Date & Time - 11/25/2024 07:45 AM) ?LAB: Hemoglobin A1c (Collection Date & Time 11/25/2024 07:45 AM) ?LAB: UA ClnCatch+Micro w/rflx Cult (Collection Date & Time - 11/25/2024 07:45 AM) 3.?Low HDL (under 40)?LAB: Complete Blood Count Auto Diff (Collection Date & Time - 11/25/2024 07:45 AM) ?LAB: [facility] [place]. Panel Fast (Collection Date & Time - 11/25/2024 07:45 AM) ?LAB: Lipid Panel (Collection Date & Time 11/25/2024 07:45 AM) ?LAB: PSA,Total (Free>4and<10) (Collection Date & Time - 11/25/2024 07:45 AM) ?LAB: Microalbumin, Random (Collection Date & Time - 11/25/2024 07:45 AM) ?LAB: Hemoglobin A1c (Collection Date & Time - 11/25/2024 07:45 AM) ?LAB: UA ClnCatch+Micro w/rflx Cult (Collection Date & Time - 11/25/2024 07:45 AM) 4.?Thrombocytopenia?LAB: Complete Blood Count Auto Diff (Collection Date & Time - 11/25/2024 07:45 AM) ?LAB: [facility] [place]. Panel Fast (Collection Date & Time - 11/25/2024 07:45 AM) ?LAB: Lipid Panel (Collection Date & Time - 11/25/2024 07:45 AM) ?LAB: PSA,Total (Free>4and<10) (Collection Date & Time - 11/25/2024 07:45 AM) ?LAB: Microalbumin, Random (Collection Date & Time - 11/25/2024 07:45 AM) ?LAB: Hemoglobin A1c (Collection Date & Time - 11/25/2024 07:45 AM) ?LAB: UA ClnCatch+Micro w/rflx Cult (Collection Date & Time - 11/25/2024 07:45 AM) 5.?Type 2 diabetes mellitus with hyperglycemia?LAB: Complete Blood Count Auto Diff (Collection Date & Time - 11/25/2024 07:45 AM) ?LAB: [facility] [place]. Panel Fast (Collection Date & Time - 11/25/2024 07:45 AM) ?LAB: Lipid Panel (Collection Date & Time - 11/25/2024 07:45 AM) ?LAB: PSA,Total (Free>4and<10) (Collection Date & Time - 11/25/2024 07:45 AM) ?LAB: Microalbumin, Random (Collection Date & Time - 11/25/2024 07:45 AM) ?LAB: Hemoglobin A1c (Collection Date & Time - 11/25/2024 07:45 AM) ?LAB: UA ClnCatch+Micro w/rflx Cult (Collection Date & Time - 11/25/2024 07:45 AM) * Procedure Codes:?86592 VENIP UNCT, ROUTINE* * * The named appointment provid er may or may not be the originator of this progress note, and it is not deemed complete until electronically signed by the appointment provider. Sign off status: Pending * Provider:?Ashkan Canales MD Date:?0 11/25/2024 Generated for Tahirai ng/Faxing/eTransmitting on:?12/02/2024 03:17 PM EST
--- OUTSIDE RECORDS SUMMARY | 2024-12-02 15:17 | XMS_ITS ---
Author Organization Ashkan Canales MD Address [address] [place] [phone] Care Team Providers Care Sheet Metal Operator Name Role Phone AllyRatnan Primary Care Provider Allergies No Known Allergies Results Component Value Reference Range Notes Hemoglobin A1c Reviewed date:06/06/2024 09:56:41 AM Interpretation: Performing Lab: Notes/Report: Hemoglobin A1c 5.4 Glucose, finger stick Reviewed date:06/06/2024 09:50:10 AM Interpretation: Performing Lab: Notes/Report: Value 101 Reason For Referral Reason olecanon busitis lef t elbow Diagnosis 1 Olecranon bursitis, left elbow (M70.22) Referral Organization Ashkan Canales MD Referring Provider First Name Ashkan Referring Provider Last Name Ally Referring Provider Speciality Internal M edicine Referred Provider Meek Hannah Referred Provider Specialty Orthopedic S urgery General Notes Dinora Vargas 10:23:55 AM EDT > info faxed patient will be calling their office to set up his appt , Brenda Browne 06/06/2024 03:54:26 PM EDT > PATIENT SCHEDULED FOR JUN 22 130PM Referral Priority Routine Referral Appointment Date 06/22/2024 REASON FOR VISIT 6 MO F/U Medications Medication SIG (Take, Route, Frequency, Duration) Notes Start Date End Date Status Cialis 20 MG 1 tablet Orally for 30 day(s) 09/30/2013 Not-Taking Allopurinol 300 MG 1 tablet Orally Once a day for 30 day(s) 05/07/2021 Not-Taking Potassium Citrate ER 15 MEQ (1620 MG) 1 tablet with meals Orally Three times a week Not-Taking tiZANidine HCl 2 MG 1 tablet as needed Orally every 8 hrs for 5 Not-Taking Ibuprofen 800 MG 1 tablet three times a day orally 30 day(s) Orally Three times a day for 90 days Not-Taking Tylenol 325 MG 1 tablet as needed Orally every 4 hrs Active Irbesartan-hydroCHLOROthi azide 300-12.5 MG TAKE 1 TABLET BY MOUTH EVERY DAY Active Pantoprazole Sodium 40 MG TAKE 1 TABLET BY MOUTH EVERY DAY for 90 Active Indomethacin 50 MG TAKE 1 CAPSULE BY [facility] THREE TIMES DAILY WITH FOOD FOR GOUT for 10 Not-Taking Vital Signs Blood pressure systolic 112 mm Hg 06/06/20 24 Blood pressure diastolic 60 mm Hg 024 Height 63 in 06/06/2024 Weight 158 lbs 06/06/2024 BMI 27.99 kg/m2 06/06/2024 weight is down 9 pounds [facility] e 01-04-24 Encounters Encounter Location Date Provider Diagnosis Ashkan Canales MD [address] [facility] [address] [place] [phone] 06/06/2024 Ashkan Canales Olecranon bursitis, left elbow M70.22 ; Pain in right hip M25.551 ; Bee sting, accidental or unintentional, initial encounter T63.441A ; Type 2 diabetes mellitus with hyperglycemia E11.65 and Pain in left hip M25.552 Assessments Encounter Date Diagnosis (ICD Code) Assessment Notes Treatment Notes Treatment Clinical Notes Section Notes 06/06/2024 Olecranon bursitis, left elbow (ICD-10 - M70.22) referal to [facility] ortho 06/06/2024 Pain in right hip (ICD-10 - M25.551) will continue to observe 06/06/2024 Bee sting, accidental or unintentional, initial encounter (ICD-10 - T63.441A) just observe 06/06/2024 Type 2 diabetes mellitus with hyperglycemia (ICD-10 - E11.65) doing well with good a1c, will continue to monitor, no need for medication at this time 06/06/2024 Pain in left hip (ICD-10 - M25.552) will observe. seems most likely due to his back Plan Of Treatment Treatment Notes Assessment Notes Olecranon bursitis, left elbow referal t o [facility] ortho Pain in right hip will continue to obs erve Bee sting, accidental or uni ntentional, initial encounter just observe Type 2 diabetes mellitus with hyperglyce danika doing well with good a1c, will continue to monitor, no need for medication at this time Pain in left hip will observe. seems most likely due to his back Referrals Referral Date Details 06/06/2024 06/06/2024, olecanon busitis left elbow , Meekeric Hannah Next Appt Details Provider Name:Ashkan gonzalez, 03/02/2025 07:30:00 AM, [address] [place] [address], [address] [place] [address], [phone], Provider Name:Ashkan gonzalez, 03/10/2025 09:15:00 AM, [address] [place] [address], [address] [place] [address], [phone], Provider Name:Ashkan gonzalez, 12/01/2025 07:30:00 AM, [address] [place] [address], [address] [place] [address], [phone], Provider Name:Ashkan gonzalez, 12/08/2025 09:30:00 AM, [address] [place] [address], [address] [place] [address], [phone], Progress Notes * Levy RIOS NDOB: 0 (83 yo M)Acc No.[id number]:06/06/2024 Progress Notes Patient:?RiosTarunLevy N Provider:?Ashkan Canales MD :1940???Age:83 Y???Sex:Male Omid e:06/06/2024 Address:[address], [place], [id number] Subjective: * Chief Complaints: * ???6 MO F/U * HPI: ???Symptom(s):? patient is a 83 yo male here for 6 month follow up visit. has swelling in left elbow for months. not painful/ had gotten up and night and both feet were so painful he couldn't walk. then later that night was better/ also had episode where both hips got painful. lasted 3 weeks. and now is gone for a few months. * ROS:?General/Constitutional:?Denies?Chills.?Denies?Fatigue.?Denies?Fever.?ENT:?Patient denies?decreased sense of smell , any loss of taste , sore throat.?Denies?Sore throat.?Endocrine:?Denies?Difficulty sleeping.?Denies?Dizziness.?Denies?Excessive sweating.?Denies?Excessive thirst.?Denies?Frequent urination.?Respiratory:?Denies?Cough.?Denies?Shortness of breath at rest.?Denies?Shortness of breath with exertion.?Gastrointestinal:?Denies?Diarrhea.?Denies?Nausea.?Musculoskeletal:?Patient denies?muscle aches.?Peripheral Vascular:?Patient denies?red and blue toes.? * Medical History:? * Surgical History:? * Hospitalization/Major Diagno stic Procedure:? * Medications:?TakingTylenol 3 25 MG Tablet 1 tablet as needed Orally every 4 hrsIrbesartan-hydroCHLOROthiazide 300-12.5 MG Tablet TAKE 1 TABLET BY MOUTH EVERY DAY Pantoprazole Sodium 40 MG Tablet Delayed Release TAKE 1 TABLET BY MOUTH EVERY DAY Taking Tylenol 325 MG Tablet 1 tablet as needed Orally every 4 hrsTaking Irbesartan-hydroCHLOROthiazide 300-12.5 MG Tablet TAKE 1 TABLET BY MOUTH EVERY DAY Taking Pantoprazole Sodium 40 MG Tablet Delayed Release TAKE 1 TABLET BY MOUTH EVERY DAY Not-Taking/PRNIndomethacin 50 MG Capsule TAKE 1 CAPSULE BY MOUTH THREE TIMES DAILY WITH FOOD FOR GOUT Allopurinol 300 MG Tablet 1 tablet Orally Once a dayIbuprofen 800 MG Tablet 1 tablet three times a day orally 30 day(s) Orally Three times a dayPotassium Citrate ER 15 MEQ (1620 MG) Tablet Extended Release 1 tablet with meals Orally Three times a weektiZANidine HCl 2 MG Tablet 1 tablet as needed Orally every 8 hrsCialis 20 MG Tablet 1 tablet Orally Not-Taking/PRN Indomethacin 50 MG Capsule TAKE 1 CAPSULE BY MOUTH THREE TIMES DAILY WITH FOOD FOR GOUT Not-Taking/PRN Allopurinol 300 MG Tablet 1 tablet Orally Once a dayNot- Taking/PRN Ibuprofen 800 MG Tablet 1 tablet three times a day orally 30 day(s) Orally Three times a dayNot-Taking/PRN Potassium Citrate ER 15 MEQ (1620 MG) Tablet Extended Release 1 tablet with meals Orally Three times a weekNot-Taking/PRN tiZANidine HCl 2 MG Tablet 1 tablet as needed Orally every 8 hrsNot-Taking/PRN Cialis 20 MG Tablet 1 tablet Orally DiscontinuedpredniSONE 20 MG Tablet 1 tablet Orally Once a dayMedication List reviewed and reconciled with the patientDiscontinued predniSONE 20 MG Tablet 1 tablet Orally Once a dayMedication List reviewed and reconciled with the patient * Allergies:?N.K.D.A.yes[Aller gies Verified] Objective: * Vitals:?Ht: 63, Wt:158, BMI: 27.99, BP:112/60 weight is down 9 pounds since 01-04-24. * Examination: ???General Examination: ?GENERAL APPEARANCE:? alert, well hydrated, in no distress .?SKIN:? abnormal finger swollen from bee sting..?HEART:? no murmurs, rubs, gallops, regular rate and rhythm.?LUNGS:? no wheezes, rales, rhonchi, good air movement, clear to auscultation bilaterally.?EXTREMITIES:? abnormal left elbow with a painless bursa swelling.? Assessment: * Assessment: 1.?Pain in right hip - M25.5 51 (Primary)?2.?Olecranon bursitis, left elbow - M70.22?3.?Bee sting, accidental or unintentional, initial encounter - T63.441A?4.?Type 2 diabetes mellitus with hyperglycemia - E11.65?5.?Pain in left hip - M25.552? Plan: * Treatment: 2.?Olecranon bursitis, left elbow? Notes: referal to [facility] ortho.? Referral To:Meek Hannah??Orthopedic Surgery ?Reason:olecanon busitis left elbow 3.?Bee sting, accidental or unintentional, initial encounter? Notes: just observe.?? 4.?Type 2 diabetes mellitus with hyperglycemia?LAB: Hemoglobin A1c ? Value Reference Range ?Hemoglobin A1c 5.4 ?LAB: Glucose, finger stick* ? Value Reference Range ?Value 101 * Josefina Soriano 4 09:50:08 AM EDT > Notes: doing well with good a1c, will continue to monitor, no need for medication at this time. ?5.?Pain in left hip? Notes: will observe. seems most likely due to his back.?? * Procedure Codes:?17751 ASSAY , GLUCOSE, BLOOD QUANT, Modifiers: QW 33096 GLYCATED HEMOGLOBIN TEST, Modifiers: QW * * Sign off status: Completed true * Provider:?Ashkan Canales MD Date:?0 06/06/2024 Generated for [place] hill/Celine/Angelaitting on:?12/02/2024 03:17 PM EST History and Physical Notes * HPI (History of Present Illness) Category Sub-Category Detail Notes Category Not es Symptom(s) patient is a 83 yo male here for 6 month follow up visit. has swelling in left elbow for months. not painful/ had gotten up and night and both feet were so painful he couldn't walk. then later that night was better/ also had episode where both hips got painful. lasted 3 weeks. and now is gone for a few months. Examination Category Sub-Category Detail Notes Category Not es General Examination GENERAL APPEARANCE: alert, w ell hydrated, in no distress HEART: no murmurs, rubs, ga llops, regular rate and rhythm LUNGS: no wheezes, rales, r honchi, good air movement, clear to auscultation bilaterally SKIN: abnormal finger swol mariah from bee sting. EXTREMITIES: abnormal left elbow with a painless bursa swelling Consultation Request Notes Referral Date Referring Provider Referred Provider Not es 06/06/2024 Ashkan Canales, Meek pemberton usitis left elbow
[2024-12-02 15:37] LABS: Uric Acid 9.7 mg/dL (3.4-7.0)
== END 2024-12-02 15:16 | disposition home or self-care (01) ==
LOC: HO.LNP 15:15
PROVIDERS: Visit Provider Internal Medicine
DX: Z87.39 Personal history of other diseases of the musculoskeletal system and connective tissue (principal)
CPT/HCPCS: 84550

== ENCOUNTER 2024-12-26 17:33 | Outpatient (REF) | payer MEDICARE, SELFPAY ==
--- OUTSIDE RECORDS SUMMARY | 2024-12-26 19:10 | XMS_ITS ---
Author Organization Ashkan Canales MD Address [address] [place] [phone] Care Team Providers Care Reading Specialist Name Role Phone Ashkan Canales Primary Care Provider REASON FOR VISIT refills Medications Medication SIG (Take, Route, Frequency, Duration) Notes Start Date End Date Status Indomethacin 50 MG TAKE 1 CAPSULE BY MO UTH THREE TIMES DAILY WITH FOOD FOR GOUT for 10 Active Irbesartan-hydroCHLOROthiaz mellisa 300-12.5 MG TAKE 1 TABLET BY MOUTH EVERY DAY for 90 Active Encounters Encounter Location Date Provider Diagnosis Ashkan Canales MD [address] [place] [phone] 12/06/2024 Ashkan Canales History of gout Z87.39 Assessments Encounter Date Diagnosis (ICD Code) Assessment Notes Treatment Notes Treatment Clinical Notes Section Notes 12/06/2024 History of gout (ICD-10 - Z87.39) Plan Of Treatment Medication Medication Name Sig Start Date Stop Date Notes Indomethacin 50 MG TAKE 1 CAPSULE BY MO UTH THREE TIMES DAILY WITH FOOD FOR GOUT for 10 Irbesartan-hydroCHLOROthiazi de 300-12.5 MG TAKE 1 TABLET BY MOUTH EVERY DAY for 90 Next Appt Details Provider Name:Ashkan Todd ier, 12/30/2024 09:15:00 AM, [address], [address], [place], [place], [phone], Provider Name:Ashkan Todd ier, 03/02/2025 07:30:00 AM, [address] [place] [address], [address], [place], [phone], Provider Name:Ashkan Todd ier, 03/10/2025 09:15:00 AM, [address] [place] [address], [address], [place], [place], [phone], Provider Name:Ashkan Todd ier, 12/01/2025 07:30:00 AM, [address] [place] [address], Suite [facility], [place], [phone], Provider Name:Ashkan Todd ier, 12/08/2025 09:30:00 AM, [address] [place] [address], Suite [facility], [place], [place], [phone], Progress Notes * RIOSLevy NDOB: 0 (84 yo M)Acc No.[id number]:12/06/2024 Patient:?Levy RIOS N :1940???Age:84 Y???Sex:Male Address: [address], [place] [address] * Refills? Refill Irbesartan-hydroCHLOROthiazide Tablet, 300-12.5 MG, 90 Tablet, TAKE 1 TABLET BY MOUTH EVERY DAY, 90, Refills=4 Refill Indomethacin Capsule, 50 MG, 30 Capsule, TAKE 1 CAPSULE BY MOUTH THREE TIMES DAILY WITH FOOD FOR GOUT, 10, Refills=0 * true * Date:? Generated for Printkoby hill/Celine/eTransmitting on:?12/26/2024 07:10 PM EST
--- OUTSIDE RECORDS SUMMARY | 2024-12-26 19:10 | XMS_ITS ---
Author Organization Ashkan Canales MD Address [address] [place] [phone] Care Team Providers Care Marketer Name Role Phone Ally Ashkan Primary Care Provider Allergies No Known Allergies Reason For Referral Reason please eval and jeanette t Diagnosis 1 Tophaceous gout (M1A .9XX1) Referral Organization Ashkan Canales MD Referring Provider First Name Ashkan Referring Provider Last Name Ally Referring Provider Speciality Internal M edicine Referred Provider Beth Ayala Referred Provider Specialty Hand Surgery General Notes Dinora Vargas 0 12/26/2024 12:01:50 PM >patient is aware of appt Referral Priority Routine Referral Appointment Date 12/27/2024 REASON FOR VISIT infected right middle finger x 3 weeks Medications Medication SIG (Take, Route, Frequency, Duration) Notes Start Date End Date Status Cephalexin 500 MG 1 capsule Orally nehemiah ry 6 hrs for 10 day(s) 12/26/2024 Active Cialis 20 MG 1 tablet Orally for 30 day(s) 09/30/2013 Not-Taking Potassium Citrate ER 15 MEQ (1620 MG) 1 tablet with meals Orally Three times a week Not-Taking tiZANidine HCl 2 MG 1 tablet as needed Orally every 8 hrs for 5 Not-Taking Allopurinol 300 MG 1 tablet Orally Once a day for 90 days 05/07/2021 Active Tylenol 325 MG 1 tablet as needed Orally every 4 hrs Active Irbesartan-hydroCHLOROthi azide 300-12.5 MG TAKE 1 TABLET BY MOUTH EVERY DAY for 90 Active Indomethacin 50 MG TAKE 1 CAPSULE BY [facility] THREE TIMES DAILY WITH FOOD FOR GOUT for 10 Not-Taking Pantoprazole Sodium 40 MG TAKE 1 TABLET BY MOUTH EVERY DAY for 90 Active Ibuprofen 800 MG 1 tablet three times a day orally 30 day(s) Orally Three times a day for 90 days Active Problems Problem Type SNOMED Code ICD Code Onset Dates Problem Status W/U Status Risk Notes Problem 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 (920648789) Tophaceous gout (M1A.9XX1) Active confirmed Vital Signs Blood pressure systolic 126 mm Hg 12/27/19 25 Blood pressure diastolic 70 mm Hg 025 Height 63 in 12/26/2024 Weight 162 lbs 12/26/2024 BMI 28.69 kg/m2 12/26/2024 weight is up 2 pounds since 12-02-24 Encounters Encounter Location Date Provider Diagnosis Ashkan Canales MD [address] [place] [address] [place] [phone] 12/26/2024 Ashkan Canales Cellulitis L03.90 and Tophaceous gout M1A.9XX1 Assessments Encounter Date Diagnosis (ICD Code) Assessment Notes Treatment Notes Treatment Clinical Notes Section Notes 12/26/2024 Cellulitis (ICD-10 - L03.90) seems most likely all the gout but will add antibiotics, patient verbalized understanding of medication and diections for use 12/26/2024 Tophaceous gout (ICD-10 - M1A.9XX1) refer him to hand surgeon Plan Of Treatment Medication Medication Name Sig Start Date Stop Date Notes Cephalexin 500 MG 1 capsule Orally nehemiah ry 6 hrs for 10 day(s) 12/26/2024 Treatment Notes Assessment Notes Cellulitis seems most likely al l the gout but will add antibiotics, patient verbalized understanding of medication and diections for use Tophaceous gout refer him to hand latif rgeon Referrals Referral Date Details 12/26/2024 12/26/2024, please e ian and treat, Beth Ayala Next Appt Details Follow Up: thursday, Reason: Provider Name:Ashkan kellyr, 12/30/2024 09:15:00 AM, [address], [address], [place], [place], [phone], Provider Name:Ashkan Todd ier, 03/02/2025 07:30:00 AM, [address], [address], [place], [place], [phone], Provider Name:Ashkan Todd ier, 03/10/2025 09:15:00 AM, [address] [place] [address], [address], [place], [place], [phone], Provider Name:Ashkan kellyr, 12/01/2025 07:30:00 AM, [address] [place] [address], Suite [facility], [place], [place], [phone], Provider Name:Ashkan kellyr, 12/08/2025 09:30:00 AM, [address] [place] [address], [address], [place], [place], [phone], Progress Notes * Levy RIOS NDOB: 0 (84 yo M)Acc No.[id number]:12/26/2024 Progress Notes Patient:?Levy RIOS N Provider:?Ashkan Canales MD :1940???Age:84 Y???Sex:Male Omid e:12/26/2024 Address: [address], [place], [id number] Subjective: * Chief Complaints: * ???1. Infected right middle finger x 3 weeks. * HPI: ???Symptom(s):?Patient is a 84 yomale here for issue with right middle finger for 3 weeks.?HAS STARTED ON ALLOPURINAL. NOW FINGER IS SWOLLEN AND RED AND VERY PAINFUL. . WHITE STUFF STARTED TO COME OUT OF HIS FINGER,. * ROS:?General/Constitutional:?Denies?Chills.?Denies?Fatigue.?Denies?Fever.?Denies?Headache.?ENT:?Patient denies?decreased sense of smell, any loss of taste, sore throat.?Denies?Sore throat.?Respiratory:?Denies?Cough.?Denies?Shortness of breath at rest.?Denies?Shortness of breath with exertion.?Gastrointestinal:?Denies?Diarrhea.?Denies?Nausea.?Musculoskeletal:?Patient denies?muscle aches.?Peripheral Vascular:?Patient denies?red and blue toes.? * Medical History:?Colonoscopy 2007 due in 5 years; colonoscopy 07/21/13 - repeat in 5 years., Chan,s esophagus, Solitary lung nodule, 3mm nodule needs no further evaluation, Cxr in [facility] er 02/15 with nodules, Prediabetes. * Medications:?Taking Tylenol 325 MG Tablet 1 tablet as needed Orally every 4 hrs , Taking Pantoprazole Sodium 40 MG Tablet Delayed Release TAKE 1 TABLET BY MOUTH EVERY DAY , Taking Ibuprofen 800 MG Tablet 1 tablet three times a day orally 30 day(s) Orally Three times a day , Taking Irbesartan-hydroCHLOROthiazide 300-12.5 MG Tablet TAKE 1 TABLET BY MOUTH EVERY DAY , Taking Allopurinol 300 MG Tablet 1 tablet Orally Once a day , Not-Taking/PRN Indomethacin 50 MG Capsule TAKE 1 CAPSULE BY MOUTH THREE TIMES DAILY WITH FOOD FOR GOUT , Not-Taking/PRN Potassium Citrate ER 15 MEQ (1620 MG) Tablet Extended Release 1 tablet with meals Orally Three times a week , Not-Taking/PRN tiZANidine HCl 2 MG Tablet 1 tablet as needed Orally every 8 hrs , Not-Taking/PRN Cialis 20 MG Tablet 1 tablet Orally , Medication List reviewed and reconciled with the patient * Allergies:?N.K.D.A. Objective: * Vitals:?Ht: 63, Wt: 162, BMI :28.69, BP:126/70, Wt-k.48. weight is up 2 pounds since 12-02-24. * Examination: ???General Examination: ?GENERAL APPEARANCE:?alert, well hydrated, in no distress.?EXTREMITIES:?RT MIDDLE finger red and with draining of milk colored secrtion which looks like uric acid. does not look like pus/ finger alos reddened.? Assessment: * Assessment: 1.?Cellulitis - L03.90 (Prim steph)???2.?Tophaceous gout - M1A.9XX1??? Plan: * Treatment: 2.?Tophaceous gout? Notes: refer him to hand surgeon? Referral To:Beth Ayala??Hand Surgery ?Reason:please eval and treat * Follow Up:?thursday * * The named appointment provid er may or may not be the originator of this progress note, and it is not deemed complete until electronically signed by the appointment provider. Sign off status: Pending * Provider:?Ashkan Canales MD Date:?0 12/26/2024 Generated for [facility]/Celine/Kiran on:?12/26/2024 07:09 PM EST History and Physical Notes * HPI (History of Present Illness) Category Sub-Category Detail Notes Category Not es Symptom(s) Patient is a 84 yomale here for issue with right middle finger for 3 weeks. HAS STARTED ON ALLOPURINAL. NOW FINGER IS SWOLLEN AND RED AND VERY PAINFUL. . WHITE STUFF STARTED TO COME OUT OF HIS FINGER, Examination Category Sub-Category Detail Notes Category Not es General Examination GENERAL APPEARANCE: alert, w ell hydrated, in no distress EXTREMITIES: RT MIDDLE finger red and with draining of milk colored secrtion which looks like uric acid. does not look like pus/ finger alos reddened Consultation Request Notes Referral Date Referring Provider Referred Provider Not es 12/26/2024 Ashkan Canales Allison please eval and treat
--- OUTSIDE RECORDS SUMMARY | 2024-12-26 19:10 | XMS_ITS | Patient Health Record ---
Author Organization [facility] Address [address] [place] [address] Care Team Providers Care Control Clerk Head Name Role Phone Ashkan Canales MD Primary Care Provider Derrell Landrum Unavailable [phone] ALLERGIES No Known Allergies REASON FOR REFERRAL [...] W/U Status Risk SNOMED Code Notes Problem Esophageal spasm (K22.4) Active confirmed [id number] Problem Gastroesophageal reflux disease, unspecified whether esophagitis present (K21.9) Active confirmed [id number] PLAN OF TREATMENT No Information Insurance Providers Payer Name Payer Address Payer Phone Subscriber Number Group Number Insured Name Patient Relationship to Insured Coverage Start Date Coverage End Date ALEJANDRO VERDUGO/KOTA CHILEL MEDICARE RAILROAD MEDICARE [address] [address] [place] [address] [id number] STELLA RIOS Self - patient is the insured MEDEX ATTN CLAIMS [address] [place] [address] [id number] STELLA RIOS Self - patient is the insured MEDICAL (GENERAL) HISTORY Medical History History ICD Code Bladder cancer--treated via cystoscopy w ith Dr. Jovel Hypertension Kidney stones Denies [place],DM,CVA,Lung disease,renal dise ase Colonoscopy and upper endo with me in 14 05 Colonoscopy in 2017 at [facility] He describes a negative card iac workup with stress test at [facility] in 01/2023 Surgical History Surgery Date(Month/Year)
--- OUTSIDE RECORDS SUMMARY | 2024-12-26 19:10 | XMS_ITS ---
Author Organization Ashkan Canales MD Address [address] [place] [phone] Care Team Providers Care Independent Living Advisor Name Role Phone Ashkan Canales Primary Care Provider REASON FOR VISIT RF allopurinol Medications Medication SIG (Take, Route, Fr equency, Duration) Notes Start Date End Date Status Allopurinol 300 MG 1 tablet Orally Once a day for 90 days 05/07/2021 Active Encounters Encounter Location Date Provider Diagnosis Ashkan Canales MD [address] [place] [phone] 12/09/2024 Ashkan Canales History of gout Z87.39 Assessments Encounter Date Diagnosis (ICD Code) Assessment Notes Treatment Notes Treatment Clinical Notes Section Notes 12/09/2024 History of gout (ICD-10 - Z87.39) Plan Of Treatment Medication Medication Name Sig Start Date Stop Date Notes Allopurinol 300 MG 1 tablet Orally Once a day for 90 days 05/07/2021 Next Appt Details Provider Name:Ahskan gonzalez, 12/30/2024 09:15:00 AM, [address] [place] [address], [address], [place], [phone], Provider Name:Ashkan Todd robinr, 03/02/2025 07:30:00 AM, [address] [place] [address], [address], [place], [id number], Provider Name:Ashkan Todd ier, 03/10/2025 09:15:00 AM, [address] [place] [address], [address], [place], [phone], Provider Name:Ashkan Todd ier, 12/01/2025 07:30:00 AM, [address] [place] [address], [address], [place], [phone], Provider Name:Ashkan Todd robinr, 12/08/2025 09:30:00 AM, [address] [place] [address], [address], [place], [phone], Progress Notes * Levy RIOS NDOB: 0 (84 yo M)Acc No.[id number]:12/09/2024 Patient:?GABRIEL Levy N :1940???Age:84 Y???Sex:Male Address: [address], [place] [address] * Refills? Refill Allopurinol Tablet, 300 MG, Orally, 90, 1 tablet, Once a day, 90 days, Refills=3 * true * Date:? Generated for [facility]/Celine/eTransmitting on:?12/26/2024 07:09 PM EST
== END 2024-12-26 17:34 | disposition home or self-care (01) ==
LOC: HO.HOSX 17:33
PROVIDERS: Visit Provider Orthopaedic Surgery
DX: Z13.89 Encounter for screening for other disorder (principal)

== ENCOUNTER 2024-12-27 13:24 | Outpatient (AMB) | payer MEDICARE, SELFPAY ==
--- NOTE | 2024-12-27 13:55 | A.OFFVIS_ITS ---
Vital Signs 12/27/24 13:56 Height 5 ft 2 in Weight 156 lb BMI 28.5 Intake Visit Reasons: New prob/ rt MF infection Intake Note: Levy 84 yr old right hand dominant male presents today for his middle finger infection.States his PCP noticed his knuckle was started to swell about 2-3 weeks. He was told he had gout and was prescribed medication. States his finger has started to swell even though he is still medication. Currently he has pain and when he removed his bandage, puss came out. He is limited ROM. Allergies No Known Allergies Allergy (Verified 12/27/24 14:08) HPI HPI New prob/ rt MF infection: Details: Levy is an 84 year old right hand dominant man who presents with complaints of a right middle finger infection. He complains of pain, swelling, and discharge from his middle finger, specifically the PIP joint. He says he has been soaking it in Epsom salt & water, and had some milky, white discharge. He struck his finger again on Thursday and noticed the same discharge He says ~2-3 weeks ago he began noticing his knuckle swelling. He was seen by his PCP who suspected Gout and prescribed him medication He says he was prescribed 2 medications . He has taken indomethacin, added medications were Allopurinol & Keflex in case this was an infection. 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 Review of Systems Const All systems reviewed & are unremarkable except as noted in HPI and below Physical Exam Vital Signs: BMI result Body Mass Index 28.5 Const General: cooperative, healthy appearing and no acute distress Orientation/consciousness: patient oriented x3 HEENT Head: Yes normocephalic and Yes atraumatic Eyes EOM: EOMs intact bilaterally Resp Effort & Inspection: normal respiratory effort and able to speak in complete sentences Cardio Jugular venous distension: no JVD Skin General skin exam: turgor normal Rashes: no rashes Neuro General: patient oriented x3 Extrem Other: Evaluation of Right Upper Extremity: The patient is alert, oriented, and in no acute distress Neuro: Median, Ulnar, Radial nerves motor and sensory intact Vascular: Cap refill brisk ROM: He can make a fist and extend all his digits Skin: No lacerations or abrasions. General: No Ecchymosis. Swelling & erythema of the middle finger PIP joint There is some white watery drainage with some white precipitate draining from the 2 small wounds over the PIP joint He can actively flex the middle finger PIP joint to ~70-80 degrees, this expressed the fluid He can bring the finger back into extension. Radiographs: 3 views of the right hand, with attention to the middle finger, was taken and viewed by me today in clinic. They show no fractures or dislocations. Psych Appearance: grossly normal Affect: normal affect Attitude: cooperative Assessment & Plan Assessment & Plan (1) Swelling of right middle finger: Comment: PIP Code(s): M79.89 - Other specified soft tissue disorders Category: Medical (2) Gout: Code(s): M10.9 - Gout, unspecified Category: Medical Plan Assessment & Plan: 1. Right middle finger PIP joint swelling & discharge Likely secondary to Gout I educated him about this condition I discussed operative and non-operative treatment options A culture swab was taken of the drainage from 1 of the wounds at his PIP joint and sent for Gram stain and routine cultures. Clean and dress the wounds daily. He will continue to take his indomethacin, Keflex & Allopurinol as instructed He should keep this clean & dry, and he should avoid any underwater activities with this hand I explained the signs and symptoms of infection, if the patient develops any new or worsening erythema, drainage, pain, or warmth they should contact the clinic or attend the ED. He will follow up next week for a wound and range of motion check. Culture should also be checked Please note that greater than 45 minutes was spent with this patient going over the history, evaluating the patient and radiographs, formulating possible treatment options, discussing them with the patient, and documenting the visit. Scribed for Beth Ayala MD by Vladimir Tay, medical oncology physician, on 12/27/24 at 2:15 PM, EST. Orders: Orders XR hand RT min 3V Today M79.641 - Pain in right hand Routine Culture w Gram Stain Today M10.9 - Gout, unspecified, M79.89 - Other specified soft tissue disorders Coding Level of Care Code Est Pt Level 4 (49990) Diagnoses Swelling of right middle finger M79.89 Gout M10.9
[2024-12-27 13:56] VITALS: BMI 28.5
--- OUTSIDE RECORDS SUMMARY | 2024-12-27 16:50 | XMS_ITS ---
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 (557910754) Tophaceous gout (M1A.9XX1) Active confirmed Vital Signs Blood pressure systolic 126 mm Hg 12/27/19 25 Blood pressure diastolic 70 mm Hg 025 Height 63 in 12/26/2024 Weight 162 lbs 12/26/2024 BMI 28.69 kg/m2 12/26/2024 weight is up 2 pounds since 12-02-24 Encounters Encounter Location Date Provider Diagnosis Ashkan Canales MD [address] [place] [address] [place] [phone] 12/26/2024 Ashkan Canales Cellulitis L03.90 and Tophaceous [...] 12/30/2024 09:15:00 AM, [address], [address], [place], [place], [phone], Provider Name:Ashkan Todd ier, 03/02/2025 07:30:00 AM, [address], [place], [place], [phone], Provider Name:Ashkan Todd ier, 03/10/2025 09:15:00 AM, [address] [place] [address], [address], [place], [place], [phone], Provider Name:Ashkan kellyr, 12/01/2025 07:30:00 AM, [address] [place] [address], Suite [facility], [place], [place], [phone], Provider Name:Ashkan kellyr, 12/08/2025 09:30:00 AM, [address] [place] [address], [address], [place], [place], [phone], Progress Notes * Levy RIOS NDOB: 0 (84 yo M)Acc No.[id number]:12/26/2024 Progress Notes Patient:?Levy RIOS N Provider:?Ashkan Canales MD :1940???Age:84 Y???Sex:Male Omid e:12/26/2024 Address: [address], [place], [id number] Subjective: * Chief Complaints: * ???1. Infected [...] nodule needs no further evaluation, Cxr in [facility] er 02/15 with nodules, Prediabetes. * Medications:?Taking [...] MD Date:?0 12/26/2024 Generated for [facility]/Celine/Kiran on:?12/27/2024 04:50 PM EST History and Physical Notes * [...]
--- OUTSIDE RECORDS SUMMARY | 2024-12-27 16:50 | XMS_ITS ---
Author Organization Ashkan Canales MD Address [address] [place] [phone] Care Team Providers Care Special Agent Secret Service Name Role Phone Ashkan Canales Primary Care Provider [phone] REASON FOR VISIT RF allopurinol Medications Medication SIG (Take, Route, Fr equency, Duration) Notes Start Date End Date Status Allopurinol 300 MG 1 tablet Orally Once a day for 90 days 05/07/2021 Active Encounters Encounter Location Date Provider Diagnosis Ashkan Canales MD [address] [place] [phone] 12/09/2024 Ashkan Canales History of gout Z87.39 Assessments Encounter Date Diagnosis (ICD Code) Assessment Notes Treatment Notes Treatment Clinical Notes Section Notes 12/09/2024 History of gout (ICD-10 - Z87.39) Plan Of Treatment Medication Medication Name Sig Start Date Stop Date Notes Allopurinol 300 MG 1 tablet Orally Once a day for 90 days 05/07/2021 Next Appt Details Provider Name:Ashkan gonzalez, 12/30/2024 09:15:00 AM, [address] [place] [address], [address], [place], [phone], Provider Name:Ashkan Todd robinr, 03/02/2025 07:30:00 AM, [address] [place] [address], [address], [place], [phone], Provider Name:Ashkan Todd ier, 03/10/2025 09:15:00 AM, [address] [place] [address], [address], [place], [phone], Provider Name:Ashkan Todd ier, 12/01/2025 07:30:00 AM, [address] [place] [address], [address], [place], [phone], Provider Name:Ashkan Todd robinr, 12/08/2025 09:30:00 AM, [address] [place] [address], [address], [place], [phone], Progress Notes * Levy RIOS NDOB: 0 (84 yo M)Acc No.[id number]:12/09/2024 Patient:?GABRIEL Levy N :1940???Age:84 Y???Sex:Male Address: [address], [place] [address] * Refills? Refill Allopurinol Tablet, 300 MG, Orally, 90, 1 tablet, Once a day, 90 days, Refills=3 * true * Date:? Generated for [facility]/Celine/eTransmitting on:?12/27/2024 04:50 PM EST
--- OUTSIDE RECORDS SUMMARY | 2024-12-27 16:51 | XMS_ITS ---
Author Organization Ashkan Canales MD Address [address] [place] [phone] Care Team Providers Care Technical Clerk Name Role Phone Ashkan Canales Primary Care [...] Ashkan Canales MD [address] [place] [phone] 12/06/2024 Ashkan Canales History of gout Z87.39 [...] 12/30/2024 09:15:00 AM, [address], [place], [place], [phone], Provider Name:Ashkan Todd ier, 03/02/2025 07:30:00 AM, [address] [place] [address], [address], [place], [phone], Provider Name:Ashkan Todd ier, 03/10/2025 09:15:00 AM, [address] [place] [address], [address], [place], [place], [phone], Provider Name:Ashkan Todd ier, 12/01/2025 07:30:00 AM, [address] [place] [address], Suite [facility], [place], [phone], Provider Name:Ashkan Todd ier, 12/08/2025 09:30:00 AM, [address] [place] [address], Suite [facility], [place], [place], [phone], Progress Notes * RIOSLevy NDOB: 0 (84 yo M)Acc No.[id number]:12/06/2024 Patient:?Levy RIOS N :1940???Age:84 Y???Sex:Male Address: [address], [place] [address] * Refills? Refill Irbesartan-hydroCHLOROthiazide Tablet, 300-12.5 MG, 90 Tablet, TAKE 1 TABLET BY MOUTH EVERY DAY, 90, Refills=4 Refill Indomethacin Capsule, 50 MG, 30 Capsule, TAKE 1 CAPSULE BY MOUTH THREE TIMES DAILY WITH FOOD FOR GOUT, 10, Refills=0 * true * Date:? Generated for [facility]/Celine/eTransmitting on:?12/27/2024 04:51 PM EST
--- OUTSIDE RECORDS SUMMARY | 2024-12-27 16:51 | XMS_ITS | Patient Health Record ---
Author Organization [facility] Address [address] [place] [address] Care Team Providers Care Taproom Attendant Name Role Phone Ashkan Canales MD Primary Care Provider Derrell Landrum Unavailable [phone] ALLERGIES No Known Allergies REASON FOR REFERRAL [...] Notes Problem Esophageal spasm (K22.4) Active confirmed [id number] Problem Gastroesophageal reflux disease, unspecified whether esophagitis present (K21.9) Active confirmed [id number] PLAN OF TREATMENT No Information Insurance Providers Payer Name Payer Address Payer Phone Subscriber Number Group Number Insured Name Patient Relationship to Insured Coverage Start Date Coverage End Date ALEJANDRO VERDUGO/KOTA CHILEL MEDICARE RAILROAD MEDICARE [address] [address] [place] [address] [id number] STELLA RIOS Self - patient is the insured MED[employer] ATTN CLAIMS [address] [place] [address] [id number] STELLA RIOS Self - patient is the insured MEDICAL (GENERAL) HISTORY Medical History History ICD Code Bladder cancer--treated via cystoscopy w ith Dr. Jovel Hypertension Kidney stones Denies [place],DM,CVA,Lung disease,renal dise ase Colonoscopy and upper endo with me in 14 05 Colonoscopy in 2017 at [facility] He describes a negative card iac workup with stress test at [facility] in 01/2023 Surgical History Surgery Date(Month/Year)
== END 2024-12-27 15:00 | disposition home or self-care (01) ==
PROVIDERS: PCP Internal Medicine; Visit Provider Orthopaedic Surgery
DX: M79.89 Other specified soft tissue disorders (principal); M10.9 Gout, unspecified
CPT/HCPCS: 99214

== ENCOUNTER → 2024-12-27 13:26 | Outpatient (BNV) | payer MEDICARE, SELFPAY | PROVIDERS: Visit Provider Radiology Diagnostic Radiology | DX: M79.641 Pain in right hand (principal) | CPT/HCPCS: 73130 ==

== ENCOUNTER 2024-12-27 14:05 | Outpatient (REF) | payer MEDICARE, SELFPAY ==
--- NOTE | ~2024-12-27 | XR_ITS ---
EXAMINATION: XR HAND, RIGHT CLINICAL INFORMATION: M79.641 - Pain in right hand COMPARISON: None available. TECHNIQUE: PA, lateral, and oblique views of the right hand. FINDINGS: There is amputation of the teeth distal phalanx third digit. There is soft tissue edema pattern/contusion opacity in the radial aspect of the interphalangeal joint third digit. There is a 5 mm metallic foreign body within the soft tissues between the first and second metacarpals. Degenerative changes in the scaphoid trapezium/trapezoid joints. Degenerative changes in the distal and interphalangeal joints of the digits more conspicuous in the fifth, second of and first digits. Vascular calcifications. XR/XR hand RT min 3V IMPRESSION: Soft tissue swelling/contusion, radial aspect interphalangeal joint third digit. Superimposed infection cannot be excluded. 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 Atherosclerosis disease, peripheral. Electronically signed by: Juan Moreno MD 12/30/2024 09:42 AM EST
--- OUTSIDE RECORDS SUMMARY | 2024-12-28 16:57 | XMS_ITS ---
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 (015048209) Tophaceous gout (M1A.9XX1) Active confirmed Vital Signs Blood pressure systolic 126 mm Hg 12/27/19 25 Blood pressure diastolic 70 mm Hg 025 Height 63 in 12/26/2024 Weight 162 lbs 12/26/2024 BMI 28.69 kg/m2 12/26/2024 weight is up 2 pounds since 12-02-24 Encounters Encounter Location Date Provider Diagnosis Ashkan Canales MD [address] [place] [address] [place] [id number] 12/26/2024 Ashkan Canales Cellulitis L03.90 and Tophaceous [...] 12/30/2024 09:15:00 AM, [address], [address], [place], [place], [phone], Provider Name:Ashkan Todd ier, 03/02/2025 07:30:00 AM, [address], [place], [place], [phone], Provider Name:Ashkan Todd ier, 03/10/2025 09:15:00 AM, [address] [place] [address], [address], [place], [place], [phone], Provider Name:Ashkan kellyr, 12/01/2025 07:30:00 AM, [address] [place] [address], [address] [facility], [place], [place], [phone], Provider Name:Ashkan kellyr, 12/08/2025 09:30:00 AM, [address] [place] [address], [address], [place], [place], [id number], Progress Notes * Levy RIOS NDOB: 0 (84 yo M)Acc No.[id number]:12/26/2024 Progress Notes Patient:?Levy RIOS N Provider:?Ashkan Canales MD :1940???Age:84 Y???Sex:Male Omid e:12/26/2024 Address: [address], [place], [id number] Subjective: * Chief Complaints: * ???1. Infected [...] nodule needs no further evaluation, [facility]15 with nodules, Prediabetes. * Medications:?Taking [...] MD Date:?0 12/26/2024 Generated for [place]/Celine/Kiran on:?12/28/2024 04:57 PM EST History and Physical Notes * [...]
--- OUTSIDE RECORDS SUMMARY | 2024-12-28 16:57 | XMS_ITS ---
Author Organization Ashkan Canales MD Address [address] [place] [phone] Care Team Providers Care Development Trainer Name Role Phone Ashkan Canales Primary Care Provider REASON FOR VISIT RF allopurinol Medications Medication SIG (Take, Route, Fr equency, Duration) Notes Start Date End Date Status Allopurinol 300 MG 1 tablet Orally Once a day for 90 days 05/07/2021 Active Encounters Encounter Location Date Provider Diagnosis Ashkan Canales MD [address] [place] [id number] 12/09/2024 Ashkan Canales History of gout Z87.39 Assessments Encounter Date Diagnosis (ICD Code) Assessment Notes Treatment Notes Treatment Clinical Notes Section Notes 12/09/2024 History of gout (ICD-10 - Z87.39) Plan Of Treatment Medication Medication Name Sig Start Date Stop Date Notes Allopurinol 300 MG 1 tablet Orally Once a day for 90 days 05/07/2021 Next Appt Details Provider Name:Ashkan gonzalez, 12/30/2024 09:15:00 AM, [address] [place] [address], [address], [place], [phone], Provider Name:Ashkan Todd robinr, 03/02/2025 07:30:00 AM, [address] [place] [address], [address], [place], [id number], Provider Name:Ashkan Todd ier, 03/10/2025 09:15:00 AM, [address] [place] [address], [address], [place], [phone], Provider Name:Ashkan Todd ier, 12/01/2025 07:30:00 AM, [address] [place] [address], [address], [place], [phone], Provider Name:Ashkan Todd robinr, 12/08/2025 09:30:00 AM, [address] [place] [address], [address], [place], [phone], Progress Notes * Levy RIOS NDOB: 0 (84 yo M)Acc No.[id number]:12/09/2024 Patient:?Tarun RIOSald N :1940???Age:84 Y???Sex:Male Address: [address], [place] [address] * Refills? Refill Allopurinol Tablet, 300 MG, Orally, 90, 1 tablet, Once a day, 90 days, Refills=3 * true * Date:? Generated for [place]/Celine/eTransmitting on:?12/28/2024 04:57 PM EST
--- OUTSIDE RECORDS SUMMARY | 2024-12-28 16:58 | XMS_ITS ---
Author Organization Ashkan Canales MD Address [address] [place] [phone] Care Team Providers Care Medical Service Technician Name Role Phone Ashkan Canales Primary Care Provider [phone] REASON FOR VISIT refills Medications Medication SIG (Take, Route, Frequency, Duration) Notes Start Date End Date Status Indomethacin 50 MG TAKE 1 CAPSULE BY [facility] THREE TIMES DAILY WITH FOOD FOR GOUT for 10 Active Irbesartan-hydroCHLOROthiaz mellisa 300-12.5 MG TAKE 1 TABLET BY MOUTH EVERY DAY for 90 Active Encounters Encounter Location Date Provider Diagnosis Ashkan Canales MD [address] [place] [id number] 12/06/2024 Ashkan Canales History of gout Z87.39 [...] 12/30/2024 09:15:00 AM, [address], [place], [place], [phone], Provider Name:Ashkan Todd ier, 03/02/2025 07:30:00 AM, [address] [place] [address], [address], [place], [phone], Provider Name:Ashkan Todd ier, 03/10/2025 09:15:00 AM, [address] [place] [address], [address], [place], [place], [phone], Provider Name:Ashkan Todd ier, 12/01/2025 07:30:00 AM, [address] [place] [address], Suite [facility], [place], [phone], Provider Name:Ashkan Todd ier, 12/08/2025 09:30:00 AM, [address] [place] [address], Suite [facility], [place], [place], [phone], Progress Notes * RIOSLevy NDOB: 0 (84 yo M)Acc No.[id number]:12/06/2024 Patient:?Levy RIOS N :1940???Age:84 Y???Sex:Male Address: [address], [place] [address] * Refills? Refill Irbesartan-hydroCHLOROthiazide Tablet, 300-12.5 MG, 90 Tablet, TAKE 1 TABLET BY MOUTH EVERY DAY, 90, Refills=4 Refill Indomethacin Capsule, 50 MG, 30 Capsule, TAKE 1 CAPSULE BY MOUTH THREE TIMES DAILY WITH FOOD FOR GOUT, 10, Refills=0 * true * Date:? Generated for [place]/Celine/eTransmitting on:?12/28/2024 04:57 PM EST
--- OUTSIDE RECORDS SUMMARY | 2024-12-28 16:58 | XMS_ITS | Patient Health Record ---
Author Organization [facility] Address [address] [place] [address] Care Team Providers Care R Programmer Name Role Phone Ashkan Canales MD Primary Care Provider Derrell Landrum Unavailable [phone] Allergies No Known Allergies Reason For Referral No Information Medications Medication SIG (Take, Route, Frequency, Duration) Notes Start Date End Date Status Irbesartan-hydroCHLOROthiaz mellisa 300-12.5 MG TAKE 1 TABLET BY MOUTH EVERY DAY Oral for 90 Active Pantoprazole Sodium 40 MG TAKE 1 TABLET BY MOUTH EVERY DAY Diagnosis Unavailable Oral for 90 Active Social History Tobacco Use: Social History Observation Description Date Details (start date - stop date) Never Smoker NA - NA Tobacco Use/Smoking Question Answer Notes Patient is a nonsmoker Alcohol Screen Question Answer Notes Did you have a drink containing alcohol in the p ast year? No Points 0 Interpretation Negative Section Notes: Nonsmoker since 2019, no alc ohol Problems Problem Type SNOMED Code ICD Code Onset Dates Problem Status W/U Status Risk Notes Problem 226710863 Esophageal spasm (K22.4) Active confirmed Problem 812793107 Gastroesophageal reflux disease, unspecified whether esophagitis present (K21.9) Active confirmed Plan Of Treatment No Information Insurance Providers Payer Name Payer Address Payer Phone Subscriber Number Group Number Insured Name Patient Relationship to Insured Coverage Start Date Coverage End Date [employer] MEDICARE RAILROAD MEDICARE [address] [address] [place] [address] [phone] [id number] STELLA RIOS Self - patient is the insured MED[employer] ATT[employer] CLAIMS [address] [place] [address] [phone] [id number] GABRIEL STELLA Self - patient is the insured Medical (General) History Medical History History ICD Code Bladder cancer--[facility] Jovel Hypertension Kidney stones Denies DE,DM,CVA,Lung disease,renal dise ase Colonoscopy and upper endo with me in 14 05 Colonoscopy in approx 2017 at [facility] He describes a negative card iac workup with stress test at [facility] in 01/2023 Surgical History Surgery Date(Month/Year)
== END 2024-12-27 14:06 | disposition home or self-care (01) ==
LOC: HO.HOSX 14:05
PROVIDERS: Visit Provider Orthopaedic Surgery
DX: Z13.89 Encounter for screening for other disorder (principal)
CPT/HCPCS: 73130

== ENCOUNTER 2024-12-27 16:39 | Outpatient (REF) | payer MEDICARE, SELFPAY ==
--- OUTSIDE RECORDS SUMMARY | 2024-12-27 20:17 | XMS_ITS | Patient Health Record ---
Author Organization Ashkan Canales MD Address [address] [place] [phone] Care Team Providers Care Software Qa System Specialist Name Role Phone Ashkan Canales Primary Care Provider [phone] Allergies No Known Allergies Results Component Value Reference Range Notes Hemoglobin A1c Reviewed date:06/06/2024 09:56:41 AM Interpretation: Performing Lab: Notes/Report: Hemoglobin A1c 5.4 Complete Blood Count Auto Di ff Reviewed date:11/27/2024 03:29:36 PM Interpretation: Performing Lab:[facility], [address] [place] [phone] Notes/Report: White Blood Count 6.8 4.8-10.8 X10*3/uL [...] NRBC Abs Auto 0.000 0.0-0.012 X10*3/uL Comprehensive Ruso. Panel Fa st Reviewed date:11/25/2024 04:24:14 PM Interpretation: Performing Lab:[facility], [address] [place] [phone] Notes/Report: Sodium 145 135-145 mmol/L Potassium 4.3 [...] Panel Reviewed date:11/25/2024 12:28:11 PM Interpretation: Performing Lab:[address] [phone] Notes/Report: Triglycerides 118 <150 mg/dL Desirable Triglyceride: [...] (Free>4and<10) Reviewed date:11/25/2024 04:20:49 PM Interpretation: Performing Lab:[address] [phone] Notes/Report: PSA,Total (Free>4and<10) 1.64 0.00-4.00 ng/mL A [...] Random Reviewed date:11/25/2024 12:34:11 PM Interpretation: Performing Lab:[address] [phone] Notes/Report: Creatinine Urine 131.98 Microalbumin Urine 14.0 Microalbum/Creatinine Ratio Ur 10.6 <30 ug/mg cr Albumin/Creatinine Ratio Reference Ranges: Normal: < 30 ug/mg creatinine Microalbuminuria: 30 - 300 ug/mg creatinine Clinical Albuminuria: > 300 ug/mg creatinine Hemoglobin A1c Reviewed date:11/25/2024 04:19:54 PM Interpretation: Performing Lab:[facility], [address] [place] [phone] Notes/Report: Hemoglobin A1c % 5.2 <6.0 % [...] average glucose, using the formula of the M8M-Fhelcyj Average Glucose study (ADAG), Diabetes Care, Vol.31,#8, May. 2007 UA ClnCatch+Micro w/rflx Cul t Reviewed date:11/25/2024 04:24:56 PM Interpretation: Performing Lab:[facility], [address] [place] [phone] Notes/Report: Urine, Clean Catch Color Urine Yellow Appearance Urine Clear PH 5.5 5.0-9.0 Glucose Urine UA Negative Negative mg/dL Urine Blood Negative Negative Specific Laurel - Urine 1.020 1.005-1.025 Urine Protein Negative Neg-Trace mg/dL Urine Ketones Negative Negative mg/dL Nitrite Urine Negative Negative Leukocyte Esterase Urine Negative Negative RBC Urine 0-2 0-2 /HPF WBC Urine 0-5 0-5 /HPF Squamous Epithelial Cell Urine 0-2 0-2 /HPF Bacteria Urine None Seen None Seen Hyaline Casts Urine 0-2 0-2 /LPF Glucose, finger stick Reviewed date:06/06/2024 09:50:10 AM Interpretation: Performing Lab: Notes/Report: Value 101 Occult Blood, Stool, Guaiac Reviewed date:12/02/2024 01:46:06 PM Interpretation:Negative Performing Lab: Notes/Report: Negative Occult Blood, Stool, Guaiac Neg Uric Acid Reviewed date:12/02/2024 04:02:49 PM Interpretation: Performing Lab:[facility], [address] [facility], [place] [address] Notes/Report: Uric Acid 9.7 3.4-7.0 mg/dL Reason For Referral Reason olecanon busitis lef [...] Referral Priority Routine Referral Appointment Date 06/22/2024 Reason please eval and jeanette t Diagnosis 1 Tophaceous gout (M1A .9XX1) Referral Organization Ashkan Canales MD Referring Provider First Name Ashkan Referring Provider Last Name Ally Referring Provider Speciality Internal edicine Referred Provider Beth Ayala Referred Provider Specialty Hand Surgery General Notes Dinora Vargas 0 12/26/2024 12:01:50 PM >patient is aware of appt Referral Priority Routine Referral Appointment Date 12/27/2024 Medications Medication SIG (Take, Route, Frequency, Duration) Notes Start Date End Date Status Cephalexin 500 MG 1 capsule Orally nehemiah ry 6 hrs for 10 day(s) 12/26/2024 Active Tylenol 325 MG 1 tablet as needed Orally every 4 hrs Active Cialis 20 MG 1 tablet Orally for 30 day(s) 09/30/2013 Not-Taking Irbesartan-hydroCHLOROthi azide 300-12.5 MG TAKE 1 TABLET BY MOUTH EVERY DAY for 90 Active Indomethacin 50 MG TAKE 1 CAPSULE BY [facility] THREE TIMES DAILY WITH FOOD FOR GOUT for 10 Not-Taking Pantoprazole Sodium 40 MG TAKE 1 TABLET BY MOUTH EVERY DAY for 90 Active Ibuprofen 800 MG 1 tablet three times a day orally 30 day(s) Orally Three times a day for 90 days Active Potassium Citrate ER 15 MEQ (1620 MG) 1 tablet with meals Orally Three times a week Not-Taking tiZANidine HCl 2 MG 1 tablet as needed Orally every 8 hrs for 5 Not-Taking Allopurinol 300 MG 1 tablet Orally Once a day for 90 days 05/07/2021 Active Immunizations Vaccine Route Administration Date Status Comme nts DECLINED, PNEUMO Unknown 03/17/2013 Administered DECLINED, FLU Unknown 09/30/2013 Administered SARS-COV-2 Pfizer Unknown 05/16/2021 Administered SARS-COV-2 Pfizer Unknown 06/12/2021 Administered Flu Vaccine Unknown 10/31/2014 Refused PPSV23 (Pnemovax) Unknown 11/28/2014 Refused Flu Vaccine Unknown 12/03/2015 Refused PPSV23 (Pnemovax) Unknown 12/03/2015 Refused Fluarix Quadrivalent Unknown 01/20/2017 Refused Fluarix Quadrivalent Unknown 07/28/2017 Refused PPSV23 (Pnemovax) Unknown 07/28/2017 Refused Prevnar 13 Unknown 02/09/2018 Refused TDaP Unknown 02/09/2018 Refused Fluarix Quadrivalent Unknown 07/06/2018 Refused Influenza High Dose Unknown 08/12/2018 Refused PPSV23 (Pnemovax) Unknown 02/08/2019 Refused Influenza High Dose Unknown 08/15/2019 Refused Fluarix Quadrivalent Unknown 11/01/2020 Refused Influenza High Dose Unknown 09/24/2021 Refused Influenza High Dose Unknown 11/28/2022 Refused Fluarix Quadrivalent Unknown 08/24/2023 Refused Social History Tobacco Use: Social History Observation Description Date Details (start date - stop date) Former Smoker NA - NA Tobacco Use/Smoking Question Answer Notes Patient is a former smoker How long has it been since y ou last smoked? > 10 years Additional Findings: Tobacco Non-User Fo rmer smoker, currently using no form of tobacco Alcohol Screen Question Answer Notes Did you have a drink containing alcohol in the p ast year? No Points 0 Interpretation Negative Problems Problem Type SNOMED Code ICD Code Onset Dates Problem Status W/U Status Risk Notes Problem 586077456 Thrombocytopenia (D69.6) Active confirmed Problem 062244106 Tubular adenoma (D36.9) Active confirmed Problem Hyperglycemia due to type 2 diabetes mellitus (096111345049564) Type 2 diabetes mellitus with hyperglycemia (E11.65) Active confirmed Problem 84582907 Kidney stone (N20.0) Active confirmed Problem 20705535 Lumbar disc disease (M51.9) Active confirmed Problem 377230795 Gastroesophageal reflux disease without esophagitis (K21.9) Active confirmed Problem 20750168 Essential hypertension (I10) Active confirmed Problem 103009621 Low HDL (under 4 0) (E78.6) Active confirmed Problem 928301060 Non morbid obesi ty due to excess calories (E66.09) Active confirmed Problem Solitary nodule of lung (572493278) Lung nodule (R91.1) Active confirmed Problem 889199640 History of gout (Z87.39) Active confirmed Problem 766437887 Bladder mass (N32.89) Active confirmed Problem 184624569 Bladder outlet obstruction (N32.0) Active confirmed Problem 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 (756904954) Tophaceous gout (M1A.9XX1) Active confirmed Problem 39950342 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) Active confirmed Problem 393352910 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) Active confirmed Problem 9000192792419016 Acute gout of l eft foot, unspecified cause (M10.9) Active confirmed Problem Asthma without status asthmaticus (78874529) Asthmatic bronchitis without complication (J45.909) Active confirmed Vital Signs Blood pressure diastolic 70 mm Hg 12/26/2024 lilian ght is up 2 pounds since 12-02-24 Height 63 in 12/26/2024 weight is up 2 pounds since 12-02-24 Blood pressure systolic 126 mm Hg 12/26/2024 weig ht is up 2 pounds since 12-02-24 Weight 162 lbs 12/26/2024 weight is up 2 pounds since 12-02-24 BMI 28.69 kg/m2 12/26/2024 weight is up 2 pounds since 12-02-24 Encounters Encounter Location Date Provider Diagnosis Ashkan Canales MD [address] [place] [id number] 11/25/2024 Ashkan Canales Blood tests for rout ine general physical examination Z00.00 ; Essential hypertension I10 ; Low HDL (under 40) E78.6 ; Thrombocytopenia D69.6 and Type 2 diabetes mellitus with hyperglycemia E11.65 Ashkan Canales MD [address] [place] [address] [id number] 12/26/2024 Ashkan Canales Cellulitis L03.90 an d Tophaceous gout M1A.9XX1 Ashkan Canales MD [address] [place] [id number] 01/04/2024 Ashkan Canales Acute gout of left foot, unspecified cause M10.9 Ashkan Canales MD [address] [facility] [address] [id number] 06/06/2024 Ashkan Canales Olecranon bursitis, left elbow M70.22 ; Pain in right hip M25.551 ; Bee sting, accidental or unintentional, initial encounter T63.441A ; Type 2 diabetes mellitus with hyperglycemia E11.65 and Pain in left hip M25.552 Ashkan Canales MD [address] [place] [id number] 12/02/2024 Ashkan Canales Essential hypertensi on I10 ; Tophaceous arthritis M1A.9XX1 ; Gastroesophageal reflux disease without esophagitis K21.9 ; Type 2 diabetes mellitus with hyperglycemia E11.65 ; History of gout Z87.39 ; Colon cancer screening Z12.11 and Depression screening Z13.31 Ashkan Canales MD [address] [place] [address] [id number] 12/06/2024 Ashkan Canales History of gout Z87. 39 Ashkan Canales MD [address] [id number] 12/09/2024 Ashkan Canales History of gout Z87. 39 Assessments Encounter Date Diagnosis (ICD Code) Assessment Notes Treatment Notes Treatment Clinical Notes Section Notes 11/25/2024 Blood tests for routine general physical examination (ICD-10 - Z00.00) 12/26/2024 Cellulitis (ICD-10 - L03.90) seems most likely all the gout but will add antibiotics, patient verbalized understanding of medication and diections for use 12/26/2024 Tophaceous gout (ICD-10 - M1A.9XX1) refer him to hand surgeon 01/04/2024 Acute gout of left foot, unspecified cause (ICD-10 - M10.9) to take indometh 3 times a day 06/06/2024 Olecranon bursitis, left elbow (ICD-10 - M70.22) referal to [facility] ortho 06/06/2024 Pain in right hip (ICD-10 - M25.551) will continue to observe 12/02/2024 Essential hypertension (ICD-10 - I10) stable, will continue current regiment 12/02/2024 Tophaceous arthritis (ICD-10 - M1A.9XX1) 12/06/2024 History of gout (ICD-10 - Z87.39) 12/09/2024 History of gout (ICD-10 - Z87.39) 11/25/2024 Essential hypertension (ICD-10 - I10) 06/06/2024 Bee sting, accidental or unintentional, initial encounter (ICD-10 - T63.441A) just observe 12/02/2024 Gastroesophageal reflux disease without esophagitis (ICD-10 - K21.9) doing well, will continuie current regiment 11/25/2024 Low HDL (under 40) (ICD-10 - E78.6) 06/06/2024 Type 2 diabetes mellitus with hyperglycemia (ICD-10 - E11.65) doing well with good a1c, will continue to monitor, no need for medication at this time 12/02/2024 Type 2 diabetes mellitus with hyperglycemia (ICD-10 - E11.65) stable, will continue current regiment 11/25/2024 Thrombocytopenia (ICD-10 - D69.6) 06/06/2024 Pain in left hip (ICD-10 - M25.552) will observe. seems most likely due to his back 12/02/2024 History of gout (ICD-10 - Z87.39) stable, will continue current regiment 11/25/2024 Type 2 diabetes mellitus with hyperglycemia (ICD-10 - E11.65) 12/02/2024 Colon cancer screening (ICD-10 - Z12.11) guaiac negative 12/02/2024 Depression screening (ICD-10 - Z13.31) negative screen 12/02/2024 Other lab reviewed an d discussed with patient Plan Of Treatment Pending Test Test Name Order Date KIDNEY STONE ANALYSIS 06/25/2015 XR GI SERIES 02/20/2023 CT chest wo con 02/13/2023 XR chest 4 views 08/30/2021 XR chest 2V 09/02/2021 Future Test Test Name Order Date XR CHEST 2 VIEW PA & LAT 10/22/2021 Next Appt Details Provider Name:Ashkan Todd ier, 12/30/2024 09:15:00 AM, [address], [address], [place], [phone], Provider Name:Ashkan Todd ier, 03/02/2025 07:30:00 AM, [address] [place] [address], [address], [place], [id number], Provider Name:Ashkan Todd ier, 03/10/2025 09:15:00 AM, [address] [facility], [address], [place], [phone], Provider Name:Ashkan Todd ier, 12/01/2025 07:30:00 AM, [address] [place] [address], [address], [place], [id number], Provider Name:Ashkan Todd ier, 12/08/2025 09:30:00 AM, [address] [place] [address], [address], [place], [id number], Insurance Providers Payer Name Payer Address Payer Phone Subscriber Number Group Number Insured Name Patient Relationship to Insured Coverage Start Date Coverage End Date [employer] - RAILROAD MEDICARE [address] [address] [place] [address] [id number] Levy Rios Self - patient is the insured MED[employer]BS [facility] [address] [place] [address] [id number] Levy Rios Self - patient is the insured Medical (General) History Medical History History ICD Code colonoscopy 2007 due in 5 years; colonos copy 07/21/13 - repeat in 5 years. arzate,s esophagus Solitary lung nodule R91.1 3mm nodule needs no further evaluation cxr in [facility] er 02/15 with nodules Prediabetes R73.09
== END 2024-12-27 16:40 | disposition home or self-care (01) ==
LOC: HO.LNP 16:39
PROVIDERS: Visit Provider Orthopaedic Surgery
DX: M79.641 Pain in right hand (principal); M79.89 Other specified soft tissue disorders; M10.9 Gout, unspecified
CPT/HCPCS: 73130; 87070; 87205; 99212

== ENCOUNTER 2025-01-04 14:00 | Outpatient (AMB) | payer MEDICARE, SELFPAY ==
[2025-01-04 14:31] VITALS: BMI 28.5
--- NOTE | 2025-01-04 14:31 | MHC.OFFVIS ---
Vital Signs 01/04/25 14:31 Height 5 ft 2 in Weight 156 lb BMI 28.5 Intake Visit Reasons: OV-RT hand middle finger infection Intake Note: Levy 84 yr old right hand dominant male presents today for his follow up visit for a wound, range of motion check an also his culture results. States he is continuing to take his ABX as directed and is doing daily dressing change. He states he has a little drainage still. He is limited ROM with is middle finger. Allergies No Known Allergies Allergy (Verified 01/04/25 14:34) HPI HPI OV-RT hand middle finger infection: Details: Levy is an 84 year old right hand dominant man who presents with complaints of a right middle finger infection. He is seen today with his granddaughter. He says he is doing better than before. He continues to have some drainage from his middle finger PIP joint and performs daily dressing changes. He continues to take his Abx as instructed. He says he squeezes this every morning until he sees slight blood in the drainage. He says this is helpful. He has taken indomethacin, added medications were Allopurinol & Keflex in case this was an infection. He says he has cats at home and has to change their litter box daily. He continues to soak his finger in hydrogen peroxide soak, and he also uses alcohol at times to clean his finger. 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 General: No Ecchymosis. Swelling & erythema of the middle finger PIP joint, improving There is some white watery drainage with some white precipitate draining from the radial wound on the side of the PIP joint. His other wounds have closed Microbiology report from 12/27/24 Gram stain Final 12/28/24-1016 Gram stain results: No polys or organisms seen Routine Culture Final 12/30/24-0901 No growth after 2 days Radiographs: 3 views of the right hand, with attention to the middle finger, was taken and viewed by me today in clinic. They show no fractures or dislocations. 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 Assessment & Plan Assessment & Plan (1) Swelling of right middle finger: Comment: PIP Code(s): M79.89 - Other specified soft tissue disorders Category: Medical (2) Gout: Code(s): M10.9 - Gout, unspecified Category: Medical Plan Assessment & Plan: 1. Right middle finger PIP joint Gout flare Microbiology report from 12/27/24 negative for infection I educated him about this condition I discussed operative and non-operative treatment options Clean and dress the wounds daily, and continue to palpate the wound to express drainage He will continue to take his indomethacin, Keflex & Allopurinol as instructed. He was not really taking his indomethacin as it is said to take ?as needed?. I did educate him about indomethacin and how it is typically used for acute flare-ups. He should keep this clean & dry, and he should avoid any underwater activities with this hand I explained the signs and symptoms of infection, if the patient develops any new or worsening erythema, drainage, pain, or warmth they should contact the clinic or attend the ED. He will continue to take his Abx as instructed until completed He will follow up in 3-4 weeks with [place] to see how he is doing, sooner if he has a new or worsening issue. Scribed for Beth Ayala MD by Vladimir Tay, medical research associate, on 01/04/25 at 2:45 PM, EST. Coding Level of Care Code Est Pt Level 4 (29014) Diagnoses Swelling of right middle finger M79.89 Gout M10.9
--- OUTSIDE RECORDS SUMMARY | 2025-01-04 16:31 | XMS_ITS ---
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 ([id number]) Tophaceous gout (M1A.9XX1) Active confirmed Vital Signs Blood pressure systolic 126 mm Hg 12/27/19 25 Blood pressure diastolic 70 mm Hg 025 Height 63 in 12/26/2024 Weight 162 lbs 12/26/2024 BMI 28.69 kg/m2 12/26/2024 weight is up 2 pounds since 12-02-24 Encounters Encounter Location Date Provider Diagnosis Ashkan Canales MD [address] [place] [address] [place] [phone] 12/26/2024 Ashkan Canales Cellulitis L03.90 and Tophaceous [...] Follow Up: thursday, Reason: Provider Name:Ashkan kellyr, 01/13/2025 09:15:00 AM, [address], [address], [place], [place], [phone], Provider Name:Ashkan Todd ier, 03/02/2025 07:30:00 AM, [address], [address], [place], [place], [phone], Provider Name:Ashkan Todd ier, 03/10/2025 09:15:00 AM, [address] [place] [address], [address], [place], [place], [phone], Provider Name:Ashkan kellyr, 12/01/2025 07:30:00 AM, [address] [place] [address], Suite [facility], [place], [place], [phone], Provider Name:Ashkan kellyr, 12/08/2025 09:30:00 AM, [address] [place] [address], [address], [place], [place], [phone], Progress Notes * Levy RIOS NDOB: 0 (84 yo M)Acc No.[id number]:12/26/2024 Progress Notes Patient:?Levy RIOS N Provider:?Ashkan Canales MD :1940???Age:84 Y???Sex:Male Omid e:12/26/2024 Address: [address], [place], [id number] Subjective: * Chief Complaints: * ???1. Infected [...] nodule needs no further evaluation, Cxr in [facility] er 02/15 with nodules, Prediabetes. * [...] MD Date:?0 12/26/2024 Generated for [facility] hill/Celine/Kiran on:?01/04/2025 04:31 PM EDT History and Physical Notes * HPI (History [...]
--- OUTSIDE RECORDS SUMMARY | 2025-01-04 16:31 | XMS_ITS ---
Author Organization Ashkan Canales MD Address [address] [place] [phone] Care Team Providers Care Stitcher Special Machine Name Role Phone Ashkan Canales Primary Care Provider REASON FOR VISIT RF allopurinol Medications Medication SIG (Take, Route, Fr equency, Duration) Notes Start Date End Date Status Allopurinol 300 MG 1 tablet Orally Once a day for 90 days 05/07/2021 Active Encounters Encounter Location Date Provider Diagnosis Ashkan Canales MD [address] [place] [phone] 12/09/2024 Ashkan Canales History of gout Z87.39 Assessments Encounter Date Diagnosis (ICD Code) Assessment Notes Treatment Notes Treatment Clinical Notes Section Notes 12/09/2024 History of gout (ICD-10 - Z87.39) Plan Of Treatment Medication Medication Name Sig Start Date Stop Date Notes Allopurinol 300 MG 1 tablet Orally Once a day for 90 days 05/07/2021 Next Appt Details Provider Name:Ashkan gonzalez, 01/13/2025 09:15:00 AM, [address] [place] [address], [address], [place], [phone], Provider Name:Ashkan Todd robinr, 03/02/2025 07:30:00 AM, [address] [place] [address], [address], [place], [phone], Provider Name:Ashkan Todd ier, 03/10/2025 09:15:00 AM, [address] [place] [address], [address], [place], [phone], Provider Name:Ashkan Todd ier, 12/01/2025 07:30:00 AM, [address] [place] [address], [address], [place], [phone], Provider Name:Ashkan Todd robinr, 12/08/2025 09:30:00 AM, [address] [place] [address], [address], [place], [phone], Progress Notes * Levy RIOS NDOB: 0 (84 yo M)Acc No.[id number]:12/09/2024 Patient:?Tarun RIOSald N :1940???Age:84 Y???Sex:Male Address: [address], [place] [address] * Refills? Refill Allopurinol Tablet, 300 MG, Orally, 90, 1 tablet, Once a day, 90 days, Refills=3 * true * Date:? Generated for [facility]/Celine/eTransmitting on:?01/04/2025 04:30 PM EDT
--- OUTSIDE RECORDS SUMMARY | 2025-01-04 16:32 | XMS_ITS | Patient Health Record ---
Author Organization [facility] Address [address] [place] [address] Care Team Providers Care Brake Repairer Railroad Name Role Phone Ashkan Canales MD Primary Care Provider Derrell Landrum Unavailable [phone] Allergies No Known Allergies Reason For Referral [...] Problem Status W/U Status Risk Notes Problem [id number] Esophageal spasm (K22.4) Active confirmed Problem [id number] Gastroesophageal reflux disease, unspecified whether esophagitis present (K21.9) Active confirmed Plan Of Treatment No Information Insurance Providers Payer Name Payer Address Payer Phone Subscriber Number Group Number Insured Name Patient Relationship to Insured Coverage Start Date Coverage End Date ALEJANDRO VERDUGO/KOTA CHILEL MEDICARE RAILROAD MEDICARE [address] [address] [place] [address] [id number] STELLA RIOS Self - patient is the insured MED[employer] ATTN CLAIMS [address] [place] [address] [id number] GABRIEL STELLA Self - patient is the insured Medical (General) History Medical History History ICD Code Bladder cancer--treated via cystoscopy w [facility] Dr. Jovel Hypertension Kidney stones Denies VA,DM,CVA,Lung disease,renal dise ase Colonoscopy and upper endo with me in 14 05 Colonoscopy in approx 2017 at [facility] He describes a negative card iac workup with stress test at [facility] in 01/2023 Surgical History Surgery Date(Month/Year)
--- OUTSIDE RECORDS SUMMARY | 2025-01-04 16:32 | XMS_ITS ---
Author Organization Ashkan Canales MD Address [address] [place] [phone] Care Team Providers Care Bundle Clerk Name Role Phone Ashkan Canales Primary Care Provider Allergies No Known Allergies REASON FOR VISIT infected finger Medications Medication SIG (Take, Route, Frequency, Duration) Notes Start Date End Date Status Potassium Citrate ER 15 MEQ (1620 MG) 1 tablet with meals Orally Three times a week Not-Taking tiZANidine HCl 2 MG 1 tablet as needed Orally every 8 hrs for 5 Not-Taking Cephalexin 500 MG 1 capsule Orally nehemiah ry 6 hrs for 10 day(s) 12/26/2024 Active Indomethacin 50 MG TAKE 1 CAPSULE BY [facility] THREE TIMES DAILY WITH FOOD FOR GOUT for 10 Not-Taking Cialis 20 MG 1 tablet Orally for 30 day(s) 09/30/2013 Not-Taking Tylenol 325 MG 1 tablet as needed Orally every 4 hrs Active Irbesartan-hydroCHLOROthi azide 300-12.5 MG TAKE 1 TABLET BY MOUTH EVERY DAY for 90 Active Allopurinol 300 MG 1 tablet Orally Once a day for 90 days 05/07/2021 Active Pantoprazole Sodium 40 MG TAKE 1 TABLET BY MOUTH EVERY DAY for 90 Active Ibuprofen 800 MG 1 tablet three times a day orally 30 day(s) Orally Three times a day for 90 days Active Vital Signs Blood pressure systolic 122 mm Hg 12/31/19 25 Blood pressure diastolic 60 mm Hg 025 Height 63 in 12/30/2024 Weight 161 lbs 12/30/2024 BMI 28.52 kg/m2 12/30/2024 Encounters Encounter Location Date Provider Diagnosis Ashkan Canales MD [address] [place] [address] [place] [phone] 12/30/2024 Ashkan Canales Cellulitis L03.90 and Tophaceous gout M1A.9XX1 Assessments Encounter Date Diagnosis (ICD Code) Assessment Notes Treatment Notes Treatment Clinical Notes Section Notes 12/30/2024 Cellulitis (ICD-10 - L03.90) right middle finger, seems as though not a cellulits and is just related to the gout 12/30/2024 Tophaceous gout (ICD-10 - M1A.9XX1) improving after draining. had no wbc and no infection, will continue to monitor Plan Of Treatment Treatment Notes Assessment Notes Cellulitis right middle finger, seems as though not a cellulits and is just related to the gout Tophaceous gout improving after drai alfred. had no wbc and no infection, will continue to monitor Next Appt Details Follow Up: 2 Weeks, Reason: Provider Name:Ashkan gonzalez, 01/13/2025 09:15:00 AM, [address] [place] [address], [address], [phone], Provider Name:Ashkan gonzalez, 03/02/2025 07:30:00 AM, [address] [place] [address], [address], [phone], Provider Name:Ashkan gonzalez, 03/10/2025 09:15:00 AM, [address] [place] [address], [address], [phone], Provider Name:Ashkan gonzalez, 12/01/2025 07:30:00 AM, [address] [place] [address], [phone], Provider Name:Ashkan Todd ier, 12/08/2025 09:30:00 AM, [address], [address], [place], [phone], Progress Notes * Levy RIOS NDOB: 0 (84 yo M)Acc No.[id number]:12/30/2024 Patient:?Levy RIOS N Provider:?Ashkan Canales MD :1940???Age:84 Y???Sex:Male Omid e:12/30/2024 [facility] [id number] Subjective: * Chief Complaints: * ???1. Infected finger. * HPI: ???Symptom(s):?patient is a 84 yo male here for evaluation ,? saw the hand surgeon and she squeezed a lot of the white stuff out of infected finger. * ROS:?General/Constitutional:?Denies?Chills.?Denies?Fatigue.?Denies?Fever.?Denies?Headache.?ENT:?Patient denies?decreased sense of smell, any loss of taste, sore throat.?Denies?Sinus pain.?Respiratory:?Denies?Cough.?Denies?Shortness of breath at rest.?Denies?Shortness of breath with exertion.?Gastrointestinal:?Denies?Diarrhea.?Denies?Nausea.?Musculoskeletal:?Patient denies?muscle aches.?Peripheral Vascular:?Patient denies?red and blue toes.? * Medical History:?Colonoscopy 2007 due in 5 years; colonoscopy 07/21/13 - repeat in 5 years., Chan,s esophagus, Solitary lung nodule, 3mm nodule needs no further evaluation, [facility], Prediabetes. * [...] 1 tablet Orally Once a day , Taking Cephalexin 500 MG Capsule 1 capsule Orally every 6 hrs , Not-Taking/PRN Indomethacin 50 MG Capsule TAKE 1 CAPSULE BY MOUTH THREE TIMES DAILY WITH FOOD FOR GOUT , Not-Taking/PRN Potassium Citrate ER 15 MEQ (1620 MG) Tablet Extended Release 1 tablet with meals Orally Three times a week , Not-Taking/PRN tiZANidine HCl 2 MG Tablet 1 tablet as needed Orally every 8 hrs , Not- Taking/PRN Cialis 20 MG Tablet 1 tablet Orally , Medication List reviewed and reconciled with the patient * Allergies:?N.K.D.A. Objective: * Vitals:?Ht: 63, Wt: 161, BMI :28.52, BP:122/60, Wt-k.03. * Examination: ???General Examination: ?GENERAL APPEARANCE:?alert, well hydrated, in no distress.?EXTREMITIES:?rt middle finger smaller and less erythema.? Assessment: * Assessment: 1.?Cellulitis - L03.90 (Prim steph)???2.?Tophaceous gout - M1A.9XX1??? Plan: * Treatment: 2.?Tophaceous gout? Notes: improving after draining. had no wbc and no infection, will continue to monitor?? * Follow Up:?2 Weeks * * The named appointment provid er may or may not be the originator of this progress note, and it is not deemed complete until electronically signed by the appointment provider. Sign off status: Pending * Provider:?Ashkan Canales MD Date:?0 12/30/2024 Generated for [facility]/Celine/Kiran on:?01/04/2025 04:31 PM EDT History and Physical Notes * HPI (History of Present Illness) Category Sub-Category Detail Notes Category Not es Symptom(s) patient is a 84 yo male here for evaluation , saw the hand surgeon and she squeezed a lot of the white stuff out of infected finger Examination Category Sub-Category Detail Notes Category Not es General Examination GENERAL APPEARANCE: alert, w ell hydrated, in no distress EXTREMITIES: rt middle finger sma ller and less erythema
== END 2025-01-04 15:05 | disposition home or self-care (01) ==
LOC: HO.HOS 14:01
PROVIDERS: PCP Internal Medicine; Visit Provider Orthopaedic Surgery
DX: M79.89 Other specified soft tissue disorders (principal); M10.9 Gout, unspecified
CPT/HCPCS: 99214

== ENCOUNTER → 2025-01-04 14:00 | Outpatient (BNVA) | payer MEDICARE, SELFPAY | PROVIDERS: PCP Internal Medicine; Visit Provider Orthopaedic Surgery | DX: M79.89 Other specified soft tissue disorders (principal); M10.9 Gout, unspecified | CPT/HCPCS: 99212 ==

== ENCOUNTER 2025-01-13 10:52 | Outpatient (REF) | payer MEDICARE, SELFPAY ==
[2025-01-13 12:30] LABS: Uric Acid 7.3 mg/dL (3.4-7.0)
== END 2025-01-13 10:53 | disposition home or self-care (01) ==
LOC: HO.LNP 10:52
PROVIDERS: Visit Provider Internal Medicine
DX: M1A.9XX1 Chronic gout, unspecified, with tophus (tophi) (principal)
CPT/HCPCS: 84550

== ENCOUNTER 2025-02-03 08:23 | Outpatient (AMB) | payer MEDICARE, SELFPAY ==
--- NOTE | 2025-02-03 08:27 | A.OFFVIS_ITS ---
Intake Visit Reasons: OV-RT hand middle finger infection Intake Note: Levy is a 84 year old right hand dominant male who presents today for a follow up for his right middle finger PIP joint gout flare up. Patient reports drainage subsided about 1.5 weeks ago. He denies pain, new numbness or tingling. Patient is able to make a full fist. Patient continues taking his gout medications. Allergies No Known Allergies Allergy (Verified 02/03/25 08:30) HPI HPI OV-RT hand middle finger infection: Details: Levy is a 84 year old right hand dominant male who presents today for a follow up for his right middle finger PIP joint gout flare up. Patient reports drainage subsided about 1.5 weeks ago. He denies pain, new numbness or tingling. Patient is able to make a full fist. Patient continues taking his gout medications. 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 Patient was able to make a full closed fist and extend all digits of the right hand fully and without difficulty General: No Ecchymosis. Swelling & erythema of the middle finger PIP joint, significantly improved from last visit Wounds noted at previous visit have closed and there is no active drainage in the office today Assessment & Plan Assessment & Plan (1) Swelling of right middle finger: Comment: PIP Code(s): M79.89 - Other specified soft tissue disorders Category: Medical (2) Gout: Code(s): M10.9 - Gout, unspecified Category: Medical Plan 1. Gout of right middle finger With associated open wounds that if since closed Patient appears to be recovering well from his condition Patient is educated about the typical recovery course At this time, patient was informed that she will continue working on range of motion of the right hand, as well as continued monitoring for any worsening symptoms and signs of reopening of wounds The patient understands this and is amenable to this plan Patient should continue with his gout medications per primary care provider Follow-up as needed with any acute concerns Coding Level of Care Code Est Pt Level 3 (00427) Diagnoses Swelling of right middle finger M79.89 Gout M10.9
--- OUTSIDE RECORDS SUMMARY | 2025-02-03 08:28 | XMS_ITS ---
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 ([id number]) Tophaceous gout (M1A.9XX1) Active confirmed Vital Signs Blood pressure systolic 126 mm Hg 12/27/19 25 Blood pressure diastolic 70 mm Hg 025 Height 63 in 12/26/2024 Weight 162 lbs 12/26/2024 BMI 28.69 kg/m2 12/26/2024 weight is up 2 pounds since 12-02-24 Encounters Encounter Location Date Provider Diagnosis Ashkan Canales MD [address] [place] [address] [place] [phone] 12/26/2024 Ashkan Canales Cellulitis L03.90 and Tophaceous [...] Follow Up: thursday, Reason: Provider Name:Ashkan kellyr, 02/10/2025 09:00:00 AM, [address], [address], [place], [place], [phone], Provider Name:Ashakn Todd ier, 03/02/2025 07:30:00 AM, [address], [address], [place], [place], [phone], Provider Name:Ashkan Todd ier, 03/10/2025 09:15:00 AM, [address] [place] [address], [address], [place], [place], [phone], Provider Name:Ashkan Todd ier, 12/01/2025 07:30:00 AM, [address] [place] [address], Suite [facility], [place], [place], [phone], Provider Name:Ashkan kellyr, 12/08/2025 09:30:00 AM, [address] [place] [address], [address], [place], [place], [phone], Progress Notes * Levy RIOS NDOB: 0 (84 yo M)Acc No.[id number]:12/26/2024 Progress Notes Patient:?Levy RIOS N Provider:?Ashkan Canales MD :1940???Age:84 Y???Sex:Male Omid e:12/26/2024 Address: [address], [place], [id number] Subjective: * Chief Complaints: * ???Infected right middle fin chuck x 3 weeks * HPI: ???Symptom(s):?Patient is a 84 yomale [...] tablet as needed Orally every 4 hrs Pantoprazole Sodium 40 MG Tablet Delayed Release TAKE 1 TABLET BY MOUTH EVERY DAY Ibuprofen 800 MG Tablet 1 tablet three times a day orally 30 day(s) Orally Three times a day Irbesartan-hydroCHLOROthiazide 300-12.5 MG Tablet TAKE 1 TABLET BY MOUTH EVERY DAY Allopurinol 300 MG Tablet 1 tablet Orally Once a day Taking Tylenol 325 MG Tablet 1 tablet as needed Orally every 4 hrs Taking Pantoprazole Sodium 40 MG Tablet Delayed Release TAKE 1 TABLET BY MOUTH EVERY DAY Taking Ibuprofen 800 MG Tablet 1 tablet three times a day orally 30 day(s) Orally Three times a day Taking Irbesartan-hydroCHLOROthiazide 300-12.5 MG Tablet TAKE 1 TABLET BY MOUTH EVERY DAY Taking Allopurinol 300 MG Tablet 1 tablet Orally Once a day Not-Taking/PRNIndomethacin 50 MG Capsule TAKE 1 CAPSULE BY MOUTH THREE TIMES DAILY WITH FOOD FOR GOUT Potassium Citrate ER 15 MEQ (1620 MG) Tablet Extended Release 1 tablet with meals Orally Three times a week tiZANidine HCl 2 MG Tablet 1 tablet as needed Orally every 8 hrs Cialis 20 MG Tablet 1 tablet Orally Medication List reviewed and reconciled with the patientNot-Taking/PRN Indomethacin 50 MG Capsule TAKE 1 CAPSULE BY MOUTH THREE TIMES DAILY WITH FOOD FOR GOUT Not-Taking/PRN Potassium Citrate ER 15 MEQ (1620 MG) Tablet Extended Release 1 tablet with meals Orally Three times a week Not-Taking/PRN tiZANidine HCl 2 MG Tablet 1 tablet as needed Orally every 8 hrs Not-Taking/PRN Cialis 20 MG Tablet 1 tablet Orally Medication List reviewed and reconciled with the patient * Allergies:?N.K.D.A.yes[Aller gies Verified] Objective: * Vitals:?Ht: 63, Wt: 162, BMI [...] Ayala??Hand Surgery ?Reason:please eval and treat * Procedure Codes:? * Follow Up:?thursday * * Sign off status: Completed true * Provider:?Ashkan Canales MD Date:?0 12/26/2024 Generated for [facility] hill/Celine/Angelaitting on:?02/03/2025 08:28 AM EDT History and Physical Notes * HPI [...]
--- OUTSIDE RECORDS SUMMARY | 2025-02-03 08:28 | XMS_ITS | Patient Health Record ---
Author Organization Ashkan Canales MD Address [address] [place] [phone] Care Team Providers Care Janitor Name Role Phone Ashkan Canales Primary Care Provider [phone] Allergies No Known Allergies Results Component Value Reference Range Notes Hemoglobin A1c Reviewed date:06/06/2024 09:56:41 AM Interpretation: Performing Lab: Notes/Report: Hemoglobin A1c 5.4 Complete Blood Count Auto Di ff Reviewed date:11/27/2024 03:29:36 PM Interpretation: Performing Lab:[facility], [address] [place] [phone] Notes/Report: White Blood Count 6.8 4.8-10.8 X10*3/uL [...] NRBC Abs Auto 0.000 0.0-0.012 X10*3/uL Comprehensive Polson. Panel Fa st Reviewed date:11/25/2024 04:24:14 PM Interpretation: Performing Lab:[facility], [address] [place] [phone] Notes/Report: Sodium 145 135-145 mmol/L Potassium 4.3 [...] Panel Reviewed date:11/25/2024 12:28:11 PM Interpretation: Performing Lab:[address] [phone] Notes/Report: Triglycerides 118 <150 mg/dL Desirable Triglyceride: [...] (Free>4and<10) Reviewed date:11/25/2024 04:20:49 PM Interpretation: Performing Lab:[address] [phone] Notes/Report: PSA,Total (Free>4and<10) 1.64 0.00-4.00 ng/mL A [...] Random Reviewed date:11/25/2024 12:34:11 PM Interpretation: Performing Lab:[address] [phone] Notes/Report: Creatinine Urine 131.98 Microalbumin Urine 14.0 Microalbum/Creatinine Ratio Ur 10.6 <30 ug/mg cr Albumin/Creatinine Ratio Reference Ranges: Normal: < 30 ug/mg creatinine Microalbuminuria: 30 - 300 ug/mg creatinine Clinical Albuminuria: > 300 ug/mg creatinine Hemoglobin A1c Reviewed date:11/25/2024 04:19:54 PM Interpretation: Performing Lab:[facility], [address] [place] [phone] Notes/Report: Hemoglobin A1c % 5.2 <6.0 % [...] average glucose, using the formula of the G7W-Uygnvfp Average Glucose study (ADAG), Diabetes Care, Vol.31,#8, May. 2007 UA ClnCatch+Micro w/rflx Cul t Reviewed date:11/25/2024 04:24:56 PM Interpretation: Performing Lab:[facility], [address] [place] [phone] Notes/Report: Urine, Clean Catch Color Urine Yellow Appearance Urine Clear PH 5.5 5.0-9.0 Glucose Urine UA Negative Negative mg/dL Urine Blood Negative Negative Specific Boyd - Urine 1.020 1.005-1.025 Urine Protein Negative [...] Acid Reviewed date:12/02/2024 04:02:49 PM Interpretation: Performing Lab:[facility], [address] [place] [phone] Notes/Report: Uric Acid 9.7 3.4-7.0 mg/dL Uric Acid Reviewed date:01/13/2025 12:33:14 PM Interpretation: Performing Lab:[facility], [address] [place] [phone] Notes/Report: Uric Acid 7.3 3.4-7.0 mg/dL Gram stain Reviewed date:12/30/2024 12:15:58 PM Interpretation: Performing Lab:[facility], [address] [place] [phone] Notes/Report: Gram stain Gram stain results: Gram stain No polys or organisms seen Routine Culture Reviewed date:12/30/2024 12:15:48 PM Interpretation: Performing Lab:[facility], [address] [place] [phone] Notes/Report: Routine Culture No growth after 2 days Reason For Referral Reason olecanon busitis lef t elbow Diagnosis 1 Olecranon bursitis, left elbow (M70.22) Referral Organization Ashkan Canales MD Referring Provider First Name Ashkan Referring Provider Last Name Ally Referring Provider Speciality Internal edicine Referred Provider Meek Hannah Referred Provider Specialty Orthopedic S urgery General Notes Dinora Vargas 10:23:55 AM EDT > info faxed patient will be calling their office to set up his appt , Brenda Borwne 06/06/2024 03:54:26 PM EDT > PATIENT SCHEDULED [...] Referral Priority Routine Referral Appointment Date 12/27/2024 Reason Topi left middle fin chuck Diagnosis 1 Tophi (M1A.9XX1) Referral Organization Ashkan Canales MD Referring Provider First Name Ashkan Referring Provider Last Name Ally Referring Provider Speciality Internal M edicine Referred Provider ZAIRE SENIOR Referred Provider Specialty Rheumatology General Notes Dinora Vargas 0 02/02/2025 01:53:42 PM >info faxed Referral Priority Routine Medications Medication SIG (Take, Route, Frequency, Duration) Notes Start Date End Date Status tiZANidine HCl 2 MG 1 tablet as needed Orally every 8 hrs for 5 Not-Taking Cialis 20 MG 1 tablet Orally for 30 day(s) 09/30/2013 Not-Taking Tylenol 325 MG 1 tablet as needed Orally every 4 hrs Active Cephalexin 500 MG 1 capsule Orally nehemiah ry 6 hrs for 10 day(s) 12/26/2024 Active Indomethacin 50 MG TAKE 1 CAPSULE BY [facility] THREE TIMES DAILY WITH FOOD FOR GOUT for 10 Not-Taking Potassium Citrate ER 15 MEQ (1620 MG) 1 tablet with meals Orally Three times a week Not-Taking Pantoprazole Sodium 40 MG TAKE 1 TABLET BY MOUTH EVERY DAY for 90 Active Ibuprofen 800 MG 1 tablet three times a day orally 30 day(s) Orally Three times a day for 90 days Active Irbesartan-hydroCHLOROthi azide 300-12.5 MG TAKE 1 [...] Problem Status W/U Status Risk Notes Problem 186299984 Thrombocytopenia (D69.6) Active confirmed Problem 779787082 Tubular adenoma (D36.9) Active confirmed Problem Hyperglycemia due to type 2 diabetes mellitus (212189192736857) Type 2 diabetes mellitus with hyperglycemia (E11.65) Active confirmed Problem 87398030 Kidney stone (N20.0) Active confirmed Problem 94495340 Lumbar disc disease (M51.9) Active confirmed Problem 234036190 Gastroesophageal reflux disease without esophagitis (K21.9) Active confirmed Problem 77060101 Essential hypertension (I10) Active confirmed Problem 465717495 Low HDL (under 4 0) (E78.6) Active confirmed Problem 115884731 Non morbid obesi ty due to excess calories (E66.09) Active confirmed Problem Solitary nodule of lung (298309390) Lung nodule (R91.1) Active confirmed Problem 189293183 History of gout (Z87.39) Active confirmed Problem 121007248 Bladder mass (N32.89) Active confirmed Problem 334991542 Bladder outlet obstruction (N32.0) Active confirmed Problem 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 (349213611) Tophaceous gout (M1A.9XX1) Active confirmed Problem 63476584 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) Active confirmed Problem 704359612 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) Active confirmed Problem 3247188268444387 Acute gout of l eft foot, unspecified cause (M10.9) Active confirmed Problem Asthma without status asthmaticus (79409844) Asthmatic bronchitis without complication (J45.909) Active confirmed Problem 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 (227525425) Tophi (M1A.9XX1) Active confirmed Vital Signs Blood pressure diastolic 56 mm Hg 01/13/2025 lilian ght is down 3 pounds since 12-30-24 Height 63 in 01/13/2025 weight is down 3 pounds since 12-30-24 Blood pressure systolic 98 mm Hg 01/13/2025 weig ht is down 3 pounds since 12-30-24 Weight 158 lbs 01/13/2025 weight is down 3 pounds since 12-30-24 BMI 27.99 kg/m2 01/13/2025 weight is down 3 pounds since 12-30-24 Encounters Encounter Location Date Provider Diagnosis Ashkan Canales MD [address] [place] [address] Drive [address] [place] [id number] 11/25/2024 Ashkan Canales Blood tests for rout ine general physical examination Z00.00 ; Essential hypertension I10 ; Low HDL (under 40) E78.6 ; Thrombocytopenia D69.6 and Type 2 diabetes mellitus with hyperglycemia E11.65 Ashkan Canales MD [address] [place] [address] [address] [id number] 06/06/2024 Ashkan Canales Olecranon bursitis, left elbow M70.22 ; Pain in right hip M25.551 ; Bee sting, accidental or unintentional, initial encounter T63.441A ; Type 2 diabetes mellitus with hyperglycemia E11.65 and Pain in left hip M25.552 Ashkan Canales MD [address] [place] [address] Drive [address] [place] [id number] 12/02/2024 Ashkan Canales Essential hypertensi on I10 ; Tophaceous arthritis M1A.9XX1 ; Gastroesophageal reflux disease without esophagitis K21.9 ; Type 2 diabetes mellitus with hyperglycemia E11.65 ; History of gout Z87.39 ; Colon cancer screening Z12.11 and Depression screening Z13.31 Ashkan Canales MD [address] [place] [address] [address] [place] [id number] 12/26/2024 Ashkan Canales Cellulitis L03.90 an d Tophaceous gout M1A.9XX1 Ahskan Canales MD [address] [place] [id number] 12/30/2024 Ashkan Canales Cellulitis L03.90 an d Tophaceous gout M1A.9XX1 Ashkan Canales MD [address] [place] [id number] 01/13/2025 Ashkan Canales Tophaceous gout M1A.9XX1 Ashkan Canales MD [address] [place] [id number] 12/06/2024 Ashkan Canales History of gout Z87. 39 Ashkan Canales MD [address] [place] [id number] 12/09/2024 Ashkan Canales History of gout Z87. 39 Assessments Encounter Date Diagnosis (ICD Code) Assessment Notes Treatment Notes Treatment Clinical Notes Section Notes 11/25/2024 Blood tests for routine general physical examination (ICD-10 - Z00.00) 06/06/2024 Olecranon bursitis, left elbow (ICD-10 - M70.22) referal to 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 still some red but getting tophi on left middle finger. referral to rheumatology 12/06/2024 History of gout (ICD-10 - Z87.39) 12/09/2024 History of gout (ICD-10 - Z87.39) 11/25/2024 Essential hypertension (ICD-10 - I10) 06/06/2024 Bee sting, accidental or unintentional, initial encounter (ICD-10 - T63.441A) just observe 12/02/2024 Gastroesophageal reflux disease without esophagitis (ICD-10 - K21.9) doing well, will continuie current regiment 12/30/2024 Tophaceous gout (ICD-10 - M1A.9XX1) improving after draining. had no wbc and no infection, will continue to monitor 11/25/2024 Low HDL (under 40) (ICD-10 - [...] LAT 10/22/2021 Next Appt Details Provider Name:Ashkan gonzalez, 02/10/2025 09:00:00 AM, [address] [place] [address], [address], [place], [place], [phone], Provider Name:Ashkan gonzalez, 03/02/2025 07:30:00 AM, [address], [address], [place], [phone], Provider Name:Ashkan Todd ier, 03/10/2025 09:15:00 AM, [address], [address], [place], [phone], Provider Name:Ashkan Todd ier, 12/01/2025 07:30:00 AM, [address], [address], [place], [phone], Provider Name:Ashkan Todd ier, 12/08/2025 09:30:00 AM, [address], [address], [place], [phone], Insurance Providers Payer Name Payer Address Payer Phone Subscriber Number Group Number Insured Name Patient Relationship to Insured Coverage Start Date Coverage End Date [employer] - RAILROAD MEDICARE [address] [address] [place] [address] [id number] Levy Rios Self - patient is the insured MEDEX BC OF [facility] [address] [place] [address] [id number] Levy Rios Self - patient is the insured Medical (General) History Medical History History ICD Code colonoscopy 2006 due in 5 years; colonos copy 07/21/13 - repeat in 5 years. arzate,s esophagus Solitary lung nodule R91.1 3mm nodule needs no further evaluation cxr in [facility] 02/15 with nodules Prediabetes R73.09
--- OUTSIDE RECORDS SUMMARY | 2025-02-03 08:28 | XMS_ITS ---
Author Organization Ashkan Canales MD Address [address] [place] [id number] Care Team Providers Care Supervisor [employer]aning [employer] Storage Name Role Phone Ashkan Canales Primary Care [...] Location Date Provider Diagnosis Ashkan Canales MD [address] [place] [id number] 12/30/2024 Ashkan Canales Cellulitis L03.90 and Tophaceous [...] Up: 2 Weeks, Reason: Provider Name:Ashkan gonzalez, 02/10/2025 09:00:00 AM, [address] [place] [address], [address], [phone], Provider Name:Ashkan gonzalez, 03/02/2025 07:30:00 AM, [address] [place] [address], [address], [phone], Provider Name:Ashkan gonzalez, 03/10/2025 09:15:00 AM, [address] [place] [address], [phone], Provider Name:Ashkan gonzalez, 12/01/2025 07:30:00 AM, [address] [place] [address], [phone], Provider Name:Ashkan Todd ier, 12/08/2025 09:30:00 AM, [address], [address], [place], [place], [phone], Progress Notes * Levy RIOS NDOB: 0 (84 yo M)Acc No.[id number]:12/30/2024 Patient:?Levy RIOS N Provider:?Ashkan Canales MD :1940???Age:84 Y???Sex:Male Omid e:12/30/2024 [address] [id number] Subjective: * Chief Complaints: * ???Infected finger * HPI: ???Symptom(s):?patient is a 84 yo [...] Tablet 1 tablet Orally Once a day Cephalexin 500 MG Capsule 1 capsule Orally every 6 hrs Taking Tylenol 325 MG Tablet 1 tablet [...] 1 tablet Orally Once a day Taking Cephalexin 500 MG Capsule 1 capsule Orally every 6 hrs Not-Taking/PRNIndomethacin 50 MG Capsule TAKE 1 CAPSULE [...] THREE TIMES DAILY WITH FOOD FOR GOUT Not- Taking/PRN Potassium Citrate ER 15 MEQ (1620 MG) Tablet Extended Release 1 tablet with meals Orally Three times a week Not-Taking/PRN tiZANidine HCl 2 MG Tablet 1 tablet as needed Orally every 8 hrs Not-Taking/PRN Cialis 20 MG Tablet 1 tablet Orally Medication List reviewed and reconciled with the patient * Allergies:?N.K.D.A.yes[Aller gies Verified] Objective: * Vitals:?Ht: 63, Wt: 161, BMI :28.52, BP:122/60, Wt-k.03. * Examination: ???General Examination: ?GENERAL APPEARANCE:?alert, well hydrated, in no distress.?EXTREMITIES:?rt middle finger smaller and less erythema.? Assessment: * Assessment: 1.?Cellulitis - L03.90 (Prim steph)???2.?Tophaceous gout - M1A.9XX1??? Plan: * Treatment: 2.?Tophaceous gout? Notes: improving after draining. had no wbc and no infection, will continue to monitor?? * Procedure Codes:? * Follow Up:?2 Weeks * * Sign off status: Completed true * Provider:?Ashkan Canales MD Date:?0 12/30/2024 Generated for [place]/Celine/Kikismitting on:?02/03/2025 08:28 AM EDT History and Physical [...]
--- OUTSIDE RECORDS SUMMARY | 2025-02-03 08:29 | XMS_ITS ---
Author Organization Ashkan Canales MD Address [address] [place] [phone] Care Team Providers Care Printer Slotter Helper Name Role Phone Ally Ashkan Primary Care Provider [phone] Allergies No Known Allergies Results Component Value Reference Range Notes Uric Acid Reviewed date:01/13/2025 12:33:14 PM Interpretation: Performing Lab:[facility], [address] [place] [phone] Notes/Report: Uric Acid 7.3 3.4-7.0 mg/dL Reason For Referral Reason Topi left middle fin tarun Diagnosis 1 Tophi (M1A.9XX1) Referral Organization Ashkan Canales MD Referring Provider First Name Ashkan Referring Provider Last Name Ally Referring Provider Speciality Internal M edicine Referred Provider ZAIRE SENIOR Referred Provider Specialty Rheumatology General Notes Dinora Vargas 0 02/02/2025 01:53:42 PM >info faxed Referral Priority Routine REASON FOR VISIT 2 WEEK F/U Medications Medication SIG (Take, Route, Frequency, Duration) Notes Start Date End Date Status tiZANidine HCl 2 MG 1 tablet as needed Orally every 8 hrs for 5 Not-Taking Cialis 20 MG 1 tablet Orally for 30 day(s) 09/30/2013 Not-Taking Tylenol 325 MG 1 tablet as needed Orally every 4 hrs Active Potassium Citrate ER 15 MEQ (1620 MG) 1 tablet with meals Orally Three times a week Not-Taking Pantoprazole Sodium 40 MG TAKE 1 TABLET BY MOUTH EVERY DAY for 90 Active Cephalexin 500 MG 1 capsule Orally nehemiah ry 6 hrs for 10 day(s) 12/26/2024 Active Indomethacin 50 MG TAKE 1 CAPSULE BY [facility] THREE TIMES DAILY WITH FOOD FOR GOUT for 10 Not-Taking Ibuprofen 800 MG 1 tablet three times a day orally 30 day(s) Orally Three times a day for 90 days Active Irbesartan-hydroCHLOROthi azide 300-12.5 MG TAKE 1 TABLET BY MOUTH EVERY DAY for 90 Active Allopurinol 300 MG 1 tablet Orally Once a day for 90 days 05/07/2021 Active Vital Signs Blood pressure systolic 98 mm Hg 01/14/20 25 Blood pressure diastolic 56 mm Hg 025 Height 63 in 01/13/2025 Weight 158 lbs 01/13/2025 BMI 27.99 kg/m2 01/13/2025 weight is down 3 pounds [facility] 12-30-24 Encounters Encounter Location Date Provider Diagnosis Ashkan Canales MD [address] [place] [address] Drive [address] [place], [place] [phone] 01/13/2025 Ashkan Canales Tophaceous gout M1A.9XX1 Assessments Encounter Date Diagnosis (ICD Code) Assessment Notes Treatment Notes Treatment Clinical Notes Section Notes 01/13/2025 Tophaceous gout (ICD-10 - M1A.9XX1) finger looks better. still some red but getting tophi on left middle finger. referral to rheumatology Plan Of Treatment Treatment Notes Assessment Notes Tophaceous gout finger looks better. still some red but getting tophi on left middle finger. referral to rheumatology Referrals Referral Date Details 01/13/2025 01/13/2025, Topi lef t middle finger, ZAIRE SENIOR Next Appt Details Follow Up: 4 Weeks, Reason: Provider Name:Ashkan gonzalez, 02/10/2025 09:00:00 AM, [address], [address], [place], [place], [phone], Provider Name:Ashkan Todd ier, 03/02/2025 07:30:00 AM, [address], [address], [place], [phone], Provider Name:Ashkan Todd ier, 03/10/2025 09:15:00 AM, [address], [address], [place], [phone], Provider Name:Ashkan Todd ier, 12/01/2025 07:30:00 AM, [address], [address], [place], [phone], Provider Name:Ashkan Todd ier, 12/08/2025 09:30:00 AM, [address], [address], [place], [phone], Progress Notes * Levy RIOS NDOB: (84 yo M)Acc No.[id number]:01/13/2025 Progress Notes Patient:?RIOSTarunLevy N Provider:?Ashkan Canales MD :1940???Age:84 Y???Sex:Male Omid e:01/13/2025 Address: [address], [place], [id number] Subjective: * Chief Complaints: * ???2 WEEK F/U * HPI: ???Symptom(s):? patient is a 84 yo male here for 2 week follow up visit. * ROS:?General/Constitutional:?Denies?Chills.?Denies?Fatigue.?Denies?Fever.?Denies?Headache.?ENT:?Denies?Sore throat.?Respiratory:?Denies?Cough.?Denies?Shortness of breath at rest.?Denies?Shortness of breath with exertion.?Gastrointestinal:?Denies?Diarrhea.?Denies?Nausea.? * Medical History:? * Surgical History:? * [...] gies Verified] Objective: * Vitals:?Ht: 63, Wt: 158, BMI :27.99, BP:98/56, Wt-k.67. weight is down 3 pounds since 12-30-24. * Examination: ???General Examination: ?GENERAL APPEARANCE:?in no acute distress.?HEAD:?normocephalic.?SKIN:?good turgor.?HEART:?no murmurs, rubs, gallops, regular rate and rhythm.?LUNGS:?no wheezes, rales, rhonchi, good air movement, clear to auscultation bilaterally.?EXTREMITIES:?abnormal the gout on rt hand is improving getting a new tophi on the middle finger on the left.? Assessment: * Assessment: 1.?Tophaceous gout - M1A.9XX 1 (Primary)??? Plan: * Treatment: 2.?Others? Referral To:ZAIRE SENIOR??Rheumatology ?Reason:Topi left middle finger * Procedure Codes:?72006 VENIP UNCT, ROUTINE* * Follow Up:?4 Weeks * * Sign off status: Completed true * Provider:?Ashkan Canales MD Date:?0 01/13/2025 Generated for [place]/Celine/eTmaria fernandasmitting on:?02/03/2025 08:28 AM EDT History and Physical Notes * HPI (History of Present Illness) Category Sub-Category Detail Notes Category Not es Symptom(s) patient is a 84 yo male here for 2 week follow up visit Examination Category Sub-Category Detail Notes Category Not es General Examination GENERAL APPEARANCE: in no acute di stress HEAD: normocephalic HEART: no murmurs, rubs, ga llops, regular rate and rhythm LUNGS: no wheezes, rales, r honchi, good air movement, clear to auscultation bilaterally SKIN: good turgor EXTREMITIES: abnormal the gout on rt hand is improving getting a new tophi on the middle finger on the left Consultation Request Notes Referral Date Referring Provider Referred Provider Not es 01/13/2025 Ashkan Canales SASKIA Topi left middle finger
--- OUTSIDE RECORDS SUMMARY | 2025-02-03 08:29 | XMS_ITS | Patient Health Record ---
Author Organization [facility] Address [address] [place] [address] Care Team Providers Care Machine Tank Operator Name Role Phone Ashkan Canales MD Primary Care Provider Derrell Landrum Unavailable [phone] Allergies No Known Allergies Reason For Referral [...] Problem Status W/U Status Risk Notes Problem 418357438 Esophageal spasm (K22.4) Active confirmed Problem 178813722 Gastroesophageal reflux disease, unspecified whether esophagitis present (K21.9) Active confirmed Plan Of Treatment No Information Insurance Providers Payer Name Payer Address Payer Phone Subscriber Number Group Number Insured Name Patient Relationship to Insured Coverage Start Date Coverage End Date ALEJANDRO VERDU[employer] MEDICARE RAILROAD MEDICARE [address] [address] [place] [address] [phone] [id number] STELLA RIOS Self - patient is the insured MEDEX ATTN CLAIMS [address] [place] [address] [phone] [id number] GABRIEL STELLA Self - patient is the insured Medical (General) History Medical History History ICD Code Bladder cancer--treated via cystoscopy w [facility] Dr. Jovel Hypertension Kidney stones Denies CO,DM,CVA,Lung disease,renal dise ase Colonoscopy and upper endo with me in 14 05 Colonoscopy in approx 2017 at [facility] He describes a negative card iac workup with stress test at [facility] in 01/2023 Surgical History Surgery Date(Month/Year)
== END 2025-02-03 08:43 | disposition home or self-care (01) ==
LOC: HO.HOS 08:24
PROVIDERS: PCP Internal Medicine
DX: M79.89 Other specified soft tissue disorders (principal); M10.9 Gout, unspecified
CPT/HCPCS: 99213

== ENCOUNTER → 2025-02-03 08:23 | Outpatient (BNVA) | payer MEDICARE, SELFPAY | PROVIDERS: PCP Internal Medicine | DX: M79.89 Other specified soft tissue disorders (principal); M10.9 Gout, unspecified | CPT/HCPCS: 99212 ==

== ENCOUNTER 2025-03-13 10:49 | Outpatient (REF) | payer MEDICARE, SELFPAY ==
[2025-03-13 11:24] LABS: Alanine Aminotransferase 6 U/L (0-40); Albumin Level 3.9 g/dL (3.5-5.0); Alkaline Phosphatase 81 U/L (39-117); Aspartate Amino Transferase 13 U/L (5-37); Bilirubin Direct 0.3 mg/dL (0.0-0.5); Bilirubin Total 0.7 mg/dL (0.0-1.0); Total Protein 7.3 g/dL (6.5-8.0)
--- OUTSIDE RECORDS SUMMARY | 2025-03-13 11:26 | XMS_ITS | Patient Health Record ---
Author Organization Ashkan Canales MD Address [address] [place] [phone] Care Team Providers Care Spray Mixer Name Role Phone Ashkan Canales Primary Care Provider Allergies No Known Allergies Results Component Value Reference Range Notes Hemoglobin A1c Reviewed date:06/06/2024 09:56:41 AM Interpretation: Performing Lab: Notes/Report: Hemoglobin A1c 5.4 Complete Blood Count Auto Di ff Reviewed date:11/27/2024 03:29:36 PM Interpretation: Performing Lab:[facility], [address] [place] [phone] Notes/Report: White Blood Count 6.8 4.8-10.8 X10*3/uL [...] NRBC Abs Auto 0.000 0.0-0.012 X10*3/uL Comprehensive [employer]. Panel Fa st Reviewed date:11/25/2024 04:24:14 PM Interpretation: Performing Lab:[facility], [address] [place] [phone] Notes/Report: Sodium 145 135-145 mmol/L Potassium 4.3 [...] Panel Reviewed date:11/25/2024 12:28:11 PM Interpretation: Performing Lab:[address] [phone] Notes/Report: Triglycerides 118 <150 mg/dL Desirable Triglyceride: [...] (Free>4and<10) Reviewed date:11/25/2024 04:20:49 PM Interpretation: Performing Lab:[address] [phone] Notes/Report: PSA,Total (Free>4and<10) 1.64 0.00-4.00 ng/mL A [...] Random Reviewed date:11/25/2024 12:34:11 PM Interpretation: Performing Lab:[address] [phone] Notes/Report: Creatinine Urine 131.98 Microalbumin Urine 14.0 Microalbum/Creatinine Ratio Ur 10.6 <30 ug/mg cr Albumin/Creatinine Ratio Reference Ranges: Normal: < 30 ug/mg creatinine Microalbuminuria: 30 - 300 ug/mg creatinine Clinical Albuminuria: > 300 ug/mg creatinine Hemoglobin A1c Reviewed date:11/25/2024 04:19:54 PM Interpretation: Performing Lab:[facility], [address] [place] [phone] Notes/Report: Hemoglobin A1c % 5.2 <6.0 % [...] average glucose, using the formula of the M8J-Fbzbhot Average Glucose study (ADAG), Diabetes Care, Vol.31,#8, May. 2007 UA ClnCatch+Micro w/rflx Cul t Reviewed date:11/25/2024 04:24:56 PM Interpretation: Performing Lab:[facility], [address] [place] [phone] Notes/Report: Urine, Clean Catch Color Urine Yellow Appearance Urine Clear PH 5.5 5.0-9.0 Glucose Urine UA Negative Negative mg/dL Urine Blood Negative Negative Specific [facility] - Urine 1.020 1.005-1.025 Urine Protein Negative [...] Acid Reviewed date:12/02/2024 04:02:49 PM Interpretation: Performing Lab:[facility], [address] [place] [phone] Notes/Report: Uric Acid 9.7 3.4-7.0 mg/dL Uric Acid Reviewed date:01/13/2025 12:33:14 PM Interpretation: Performing Lab:[facility], [address] [place] [phone] Notes/Report: Uric Acid 7.3 3.4-7.0 mg/dL Gram stain Reviewed date:12/30/2024 12:15:58 PM Interpretation: Performing Lab:[facility], [address] [place] [phone] Notes/Report: Gram stain Gram stain results: Gram stain No polys or organisms seen Routine Culture Reviewed date:12/30/2024 12:15:48 PM Interpretation: Performing Lab:[facility], [address] [place] [phone] Notes/Report: Routine Culture No growth after 2 [...] Vargas 0 02/02/2025 01:53:42 PM >info faxed appt is booked for 06-06-2026 at 10:10, Dinora Vargas 02/17/2025 02:07:50 PM >Referral info mailed to patient Referral Priority Routine Referral Appointment Date 06/06/2026 Medications Medication SIG (Take, Route, Frequency, Duration) Notes Start Date End Date Status Irbesartan-hydroCHLOROthi azide 300-12.5 MG TAKE 1 TABLET BY MOUTH EVERY DAY for 90 Active Tylenol 325 MG 1 tablet as needed Orally every 4 hrs Active Potassium Citrate ER 15 MEQ (1620 MG) 1 tablet with meals Orally Three times a week Not-Taking Indomethacin 50 MG TAKE 1 CAPSULE BY [facility] THREE TIMES DAILY WITH FOOD FOR GOUT for 10 Active tiZANidine HCl 2 MG 1 tablet as needed Orally every 8 hrs for 5 Not-Taking Allopurinol 300 MG 1 tablet Orally Once a day 05/07/2021 Active Cialis 20 MG 1 tablet Orally for 30 day(s) 09/30/2013 Not-Taking Pantoprazole Sodium 40 MG TAKE 1 TABLET BY MOUTH EVERY DAY for 90 Active Ibuprofen 800 MG 1 tablet three times a day orally 30 day(s) Orally Three times a day for 90 days Not-Taking Immunizations Vaccine Route Administration Date Status Comme [...] Problem Status W/U Status Risk Notes Problem 570642942 Thrombocytopenia (D69.6) Active confirmed Problem 909062564 Tubular adenoma (D36.9) Active confirmed Problem Hyperglycemia due to type 2 diabetes mellitus (543073639011861) Type 2 diabetes mellitus with hyperglycemia (E11.65) Active confirmed Problem 55585958 Kidney stone (N20.0) Active confirmed Problem 86247729 Lumbar disc disease (M51.9) Active confirmed Problem 411328224 Gastroesophageal reflux disease without esophagitis (K21.9) Active confirmed Problem 59318349 Essential hypertension (I10) Active confirmed Problem 053557986 Low HDL (under 4 0) (E78.6) Active confirmed Problem 073349316 Non morbid obesi ty due to excess calories (E66.09) Active confirmed Problem Solitary nodule of lung (200636003) Lung nodule (R91.1) Active confirmed Problem 725349830 History of gout (Z87.39) Active confirmed Problem 189884628 Bladder mass (N32.89) Active confirmed Problem 419793581 Bladder outlet obstruction (N32.0) Active confirmed Problem 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 (596091572) Tophaceous gout (M1A.9XX1) Active confirmed Problem 82989459 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) Active confirmed Problem 793034304 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) Active confirmed Problem 8408781378004829 Acute gout of l eft foot, unspecified cause (M10.9) Active confirmed Problem Asthma without status asthmaticus (34502200) Asthmatic bronchitis without complication (J45.909) Active confirmed Problem 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 (704713266) Tophi (M1A.9XX1) Active confirmed Vital Signs Blood pressure diastolic 70 mm Hg 02/10/2025 lilian ght is up 5 pounds since 01-13-25 Height 63 in 02/10/2025 weight is up 5 pounds since 01-13-25 Blood pressure systolic 138 mm Hg 02/10/2025 weig ht is up 5 pounds since 01-13-25 Weight 163 lbs 02/10/2025 weight is up 5 pounds since 01-13-25 BMI 28.87 kg/m2 02/10/2025 weight is up 5 pounds since 01-13-25 Encounters Encounter Location Date Provider Diagnosis Ashkan Canales MD [address] [place] [id number] 11/25/2024 Ashkan Canales Blood tests for rout ine general physical examination Z00.00 ; Essential hypertension I10 ; Low HDL (under 40) E78.6 ; Thrombocytopenia D69.6 and Type 2 diabetes mellitus with hyperglycemia E11.65 Ashkan Canales MD [address] [place] [address] Drive [address] [place] [id number] 03/13/2025 Ashkan Canales History of gout Z87. 39 Ashkan Canales MD [address] [place] [address] Drive [address] [place] [address] [id number] 06/06/2024 Ashkan Canales Olecranon bursitis, left elbow M70.22 ; Pain in right hip M25.551 ; Bee sting, accidental or unintentional, initial encounter T63.441A ; Type 2 diabetes mellitus with hyperglycemia E11.65 and Pain in left hip M25.552 Ashkan Canales MD [address] [place] [address] Drive [address] [place] [address] [id number] 12/02/2024 Ashkan Canales Essential hypertensi on I10 ; Tophaceous arthritis M1A.9XX1 ; Gastroesophageal reflux disease without esophagitis K21.9 ; Type 2 diabetes mellitus with hyperglycemia E11.65 ; History of gout Z87.39 ; Colon cancer screening Z12.11 and Depression screening Z13.31 Ashkan Canales MD [address] [place] [address] [id number] 12/26/2024 Ashkan Canales Cellulitis L03.90 an d Tophaceous gout M1A.9XX1 Ashkan Canales MD [address] [place] [address] [id number] 12/30/2024 Ashkan Canales Cellulitis L03.90 an d Tophaceous gout M1A.9XX1 Ashkan Canales MD [address] [place] [address] [id number] 01/13/2025 Ashkan Canales Tophaceous gout M1A.9XX1 Ashkan Canales MD [address] [place] [address] [id number] 02/10/2025 Ashkan Canales Tophaceous gout M1A.9XX1 Ashkan Canales MD [address] [id number] 12/06/2024 Ashkan Canales History of gout Z87. 39 Ashkan Canales MD [address] [place] [address] [id number] 12/09/2024 Ashkan Canales History of gout Z87. 39 Assessments Encounter Date Diagnosis (ICD Code) Assessment Notes Treatment Notes Treatment Clinical Notes Section Notes 11/25/2024 Blood tests for routine general physical examination (ICD-10 - Z00.00) 03/13/2025 History of gout (ICD-10 - Z87.39) 06/06/2024 Olecranon bursitis, left elbow (ICD-10 - M70.22) referal to [facility] 06/06/2024 Pain in right hip (ICD-10 [...] on left middle finger. referral to rheumatology 02/10/2025 Tophaceous gout (ICD-10 - M1A.9XX1) continue with present meds and repeat labes in month 12/06/2024 History of gout (ICD-10 - Z87.39) [...] 4 views 08/30/2021 XR chest 2V 09/02/2021 Liver Panel 03/13/2025 Uric Acid 03/13/2025 Future Test Test Name Order Date XR CHEST 2 VIEW PA & LAT 10/22/2021 Next Appt Details Provider Name:Ashkansandra Todd ier, 04/10/2025 10:15:00 AM, [address], [address], [place], [place], [phone], Provider Name:Ashkan Todd ier, 12/01/2025 07:30:00 AM, [address], [place], [place], [phone], Provider Name:Ashkan Fransico Peyton ier, 12/08/2025 09:30:00 AM, [address], [address], [place], [place], [phone], Insurance Providers Payer Name Payer Address Payer Phone Subscriber Number Group Number Insured Name Patient Relationship to Insured Coverage Start Date Coverage End Date [employer] - RAILROAD MEDICARE [address] [address] [place] [address] [phone] [id number] Levy Rios Self - patient is the insured MEDEX BCBS [facility] [address] [place] [address] [phone] [id number] Levy Rios Self - patient is the insured Medical (General) History Medical History History ICD Code colonoscopy 2007 due in 5 years; colonos copy 07/21/13 - repeat in 5 years. arzate,s esophagus Solitary lung nodule R91.1 3mm nodule needs no further evaluation cxr in [facility] er 02/15 with nodules Prediabetes R73.09
--- OUTSIDE RECORDS SUMMARY | 2025-03-13 11:26 | XMS_ITS ---
Author Organization Ashkan Canales MD Address [address] [place] [phone] Care Team Providers Care Mental Health Program Manager Name Role Phone Ally Ashkan Primary Care Provider [phone] REASON FOR VISIT LIVER PANEL, URIC ACID Encounters Encounter Location Date Provider Diagnosis Ashkan Canales MD [address] [facility] [address] [place] [id number] 03/13/2025 Ashkan Canales History of gout Z87.39 Assessments Encounter Date Diagnosis (ICD Code) Assessment Notes Treatment Notes Treatment Clinical Notes Section Notes 03/13/2025 History of gout (ICD-10 - Z87.39) Plan Of Treatment Pending Test Test Name Order Date Liver Panel 03/13/2025 Uric Acid 03/13/2025 Next Appt Details Provider Name:Ashkan gonzalez, 04/10/2025 10:15:00 AM, [address], Suite [facility], [place], [place], [phone], Provider Name:Ashkan gonzalez, 12/01/2025 07:30:00 AM, [address], [address], [place], [phone], Provider Name:Ashkan Dennisonmayra ier, 12/08/2025 09:30:00 AM, [address] [facility] [address], [address], [place], [phone], Progress Notes * Levy RIOS NDOB: 0 (84 yo M)Acc No.[id number]:03/13/2025 Progress Note Patient:?Levy RIOS N Provider:?Ashkan Canales MD :1940???Age:84 Y???Sex:Male Omid e:03/13/2025 Address: [address], [place], [id number] Subjective: * Chief Complaints: * ???1. LIVER PANEL, URIC ACID . * Medical History:? Objective: * Vitals:? Assessment: * Assessment: 1.?History of gout - Z87.39? ?? Plan: * Treatment: * Procedure Codes:?27822 VENIP UNCT, ROUTINE* * * The named appointment provid er may or may not be the originator of this progress note, and it is not deemed complete until electronically signed by the appointment provider. Sign off status: Pending * Provider:?Ashkan Canales MD Date:?0 03/13/2025 Generated for Henry hill/Celine/eTmaria fernandasmitting on:?03/13/2025 11:26 AM EDT
--- OUTSIDE RECORDS SUMMARY | 2025-03-13 11:27 | XMS_ITS ---
Author Organization Ashkan Canales MD Address [address] [place] [phone] Care Team Providers Care Rocket Engine Tester Name Role Phone AllyAshkan Primary Care Provider Allergies No Known Allergies Results Component Value Reference Range Notes Uric Acid Reviewed date:01/13/2025 12:33:14 PM Interpretation: Performing Lab:[facility], [address] [place] [phone] Notes/Report: Uric Acid 7.3 3.4-7.0 mg/dL Reason For Referral Reason Topi left middle fin chuck Diagnosis [...] Referral Priority Routine Referral Appointment Date 06/06/2026 REASON FOR VISIT 2 WEEK F/U Medications [...] 50 MG TAKE 1 CAPSULE BY [facility] THREE TIMES DAILY WITH FOOD FOR GOUT [...] kg/m2 01/13/2025 weight is down [address] [facility] 12-30-24 Encounters Encounter Location Date Provider Diagnosis Ashkan Canales MD [address] [place] [address] [place] [id number] 01/13/2025 Ashkan Canales Tophaceous gout M1A.9XX1 Assessments [...] rheumatology Referrals Referral Date Details 01/13/2025 01/13/2025, Luana leger middle finger, [facility]AIRE SENIOR Next Appt Details Follow Up: 4 Weeks, Reason: Provider Name:Ashkan Todd ier, 04/10/2025 10:15:00 AM, [address], [address], [place], [phone], Provider Name:Ashkan Todd ier, 12/01/2025 07:30:00 AM, [address], [address], [place], [phone], Provider Name:Ashkan Todd ier, 12/08/2025 09:30:00 AM, [address], [address], [place], [phone], Progress Notes * Levy RIOS NDOB: (84 yo M)Acc No.[id number]:01/13/2025 Progress Notes Patient:?Levy RIOS N Provider:?Ashkan Canales MD :1940???Age:84 Y???Sex:Male Omid e:01/13/2025 [facility] [place], [id number] Subjective: * Chief Complaints: * ???2 WEEK [...] SENIOR??Rheumatology ?Reason:Topi left middle finger * Procedure Codes:?07390 VENIP UNCT, ROUTINE* * Follow Up:?4 Weeks * * Sign off status: Completed true * Provider:?Ashkan Canales MD Date:?0 01/13/2025 Generated for Tahirai sergio/Celine/eTransmitting on:?03/13/2025 11:26 AM EDT History and Physical Notes * [...]
--- OUTSIDE RECORDS SUMMARY | 2025-03-13 11:27 | XMS_ITS ---
Author Organization Ashkan Canales MD Address [address] [place] [phone] Care Team Providers Care Anchorer Name Role Phone Ashkan Canales Primary Care Provider [phone] Allergies No Known Allergies REASON FOR VISIT 4 week Medications Medication SIG (Take, Route, Frequency, Duration) Notes Start Date End Date Status Tylenol 325 MG 1 tablet as needed Orally every 4 hrs Active Potassium Citrate ER 15 MEQ (1620 MG) 1 tablet with meals Orally Three times a week Not-Taking Allopurinol 300 MG 1 tablet Orally Once a day 05/07/2021 Active Indomethacin 50 MG TAKE 1 CAPSULE BY [facility] THREE TIMES DAILY WITH FOOD FOR GOUT Active Irbesartan-hydroCHLOROthi azide 300-12.5 MG TAKE 1 TABLET BY MOUTH EVERY DAY for 90 Active tiZANidine HCl 2 MG 1 tablet as needed Orally every 8 hrs for 5 Not-Taking Cialis 20 MG 1 tablet Orally for 30 day(s) 09/30/2013 Not-Taking Pantoprazole Sodium 40 MG TAKE 1 TABLET BY MOUTH EVERY DAY for 90 Active Ibuprofen 800 MG 1 tablet three times a day orally 30 day(s) Orally Three times a day for 90 days Not-Taking Vital Signs Blood pressure systolic 138 mm Hg 02/11/20 25 Blood pressure diastolic 70 mm Hg 025 Height 63 in 02/10/2025 Weight 163 lbs 02/10/2025 BMI 28.87 kg/m2 02/10/2025 weight is up 5 pounds since 01-13-25 Encounters Encounter Location Date Provider Diagnosis Ashkan Canales MD [address] [place] [id number] 02/10/2025 Ashkan Canales Tophaceous gout M1A.9XX1 Assessments Encounter Date Diagnosis (ICD Code) Assessment Notes Treatment Notes Treatment Clinical Notes Section Notes 02/10/2025 Tophaceous gout (ICD-10 - M1A.9XX1) continue with present meds and repeat labes in month Plan Of Treatment Medication Medication Name Sig Start Date Stop Date Notes Tylenol 325 MG 1 tablet as needed Orally every 4 hrs Allopurinol 300 MG 1 tablet Orally Once a day 05/07/2021 Indomethacin 50 MG TAKE 1 CAPSULE BY [facility] THREE TIMES DAILY WITH FOOD FOR GOUT Treatment Notes Assessment Notes Tophaceous gout continue with presen t meds and repeat labes in month Next Appt Details Follow Up: 2 Months, Reason: Provider Name:Ashkan gonzalez, 04/10/2025 10:15:00 AM, [address] [place] [address], [phone], Provider Name:Ashkan gonzalez, 12/01/2025 07:30:00 AM, [address] [place] [address], [phone], Provider Name:Ashkan gonzalez, 12/08/2025 09:30:00 AM, [address] [place] [address], [phone], Progress Notes * Levy RIOS NDOB: 0 (84 yo M)Acc No.[id number]:02/10/2025 Progress Notes Patient:?Levy RIOS N Provider:?Ashkan Canales MD :1940???Age:84 Y???Sex:Male Omid e:02/10/2025 Address: [address], [place], [id number] Subjective: * Chief Complaints: * ???4 week * HPI: ???Symptom(s):?patient is a 84 yo male here for follow up. gout is better. taking tylinol and indocin once or twice a week. * ROS:?General/Constitutional:?Denies?Chills.?Denies?Fatigue.?Denies?Fever.?Denies?Headache.?ENT:?Denies?Sore throat.?Respiratory:?Denies?Cough.?Denies?Shortness of breath at rest.?Denies?Shortness of breath with exertion.?Gastrointestinal:?Denies?Diarrhea.?Denies?Nausea.? * Medical History:? * Surgical History:? * Hospitalization/Major Diagno stic Procedure:? * Medications:?TakingTylenol 3 25 MG Tablet 1 tablet as needed Orally every 4 hrs Pantoprazole Sodium 40 MG Tablet Delayed Release TAKE 1 TABLET BY MOUTH EVERY DAY Irbesartan-hydroCHLOROthiazide 300-12.5 MG Tablet TAKE 1 TABLET BY MOUTH EVERY DAY Allopurinol 300 MG Tablet 1 tablet Orally Once a day Indomethacin 50 MG Capsule TAKE 1 CAPSULE BY MOUTH THREE TIMES DAILY WITH FOOD FOR GOUT Taking Tylenol 325 MG Tablet 1 tablet as needed Orally every 4 hrs Taking Pantoprazole Sodium 40 MG Tablet Delayed Release TAKE 1 TABLET BY MOUTH EVERY DAY Taking Irbesartan-hydroCHLOROthiazide 300-12.5 MG Tablet TAKE 1 TABLET BY MOUTH EVERY DAY Taking Allopurinol 300 MG Tablet 1 tablet Orally Once a day Taking Indomethacin 50 MG Capsule TAKE 1 CAPSULE BY MOUTH THREE TIMES DAILY WITH FOOD FOR GOUT Not-Taking/PRNIbuprofen 800 MG Tablet 1 tablet three times a day orally 30 day(s) Orally Three times a day Potassium Citrate ER 15 MEQ (1620 MG) Tablet Extended Release 1 tablet with meals Orally Three times a week tiZANidine HCl 2 MG Tablet 1 tablet as needed Orally every 8 hrs Cialis 20 MG Tablet 1 tablet Orally Not-Taking/PRN Ibuprofen 800 MG Tablet 1 tablet three times a day orally 30 day(s) Orally Three times a day Not-Taking/PRN Potassium Citrate ER 15 MEQ (1620 MG) Tablet Extended Release 1 tablet with meals Orally Three times a week Not-Taking/PRN tiZANidine HCl 2 MG Tablet 1 tablet as needed Orally every 8 hrs Not-Taking/PRN Cialis 20 MG Tablet 1 tablet Orally DiscontinuedCephalexin 500 MG Capsule 1 capsule Orally every 6 hrs Medication List reviewed and reconciled with the patientDiscontinued Cephalexin 500 MG Capsule 1 capsule Orally every 6 hrs Medication List reviewed and reconciled with the patient * Allergies:?N.K.D.A.yes[Aller gies Verified] Objective: * Vitals:?Ht: 63, Wt: 163, BMI :28.87, BP:138/70, Wt-k.94. weight is up 5 pounds since 01-13-25. * Examination: ???General Examination: ?GENERAL APPEARANCE:?alert, well hydrated, in no distress.?HEAD:?normocephalic.?HEART:?no murmurs, rubs, gallops, regular rate and rhythm.?LUNGS:?no wheezes, rales, rhonchi, good air movement, clear to auscultation bilaterally.?EXTREMITIES:?abnormal finger is almost completely better. still with some tophi which are alll improving..? Assessment: * Assessment: 1.?Tophaceous gout - M1A.9XX 1 (Primary)??? Plan: * Treatment: * Procedure Codes:? * Follow Up:?2 Months * * Sign off status: Completed true * Provider:?Ashkan Canales MD Date:?0 02/10/2025 Generated for [place] hill/Celine/eTmaria fernandasmitting on:?03/13/2025 11:26 AM EDT History and Physical Notes * HPI (History of Present Illness) Category Sub-Category Detail Notes Category Not es Symptom(s) patient is a 84 yo male here for follow up. gout is better. taking tylinol and indocin once or twice a week Examination Category Sub-Category Detail Notes Category Not es General Examination GENERAL APPEARANCE: alert, w ell hydrated, in no distress HEAD: normocephalic HEART: no murmurs, rubs, ga llops, regular rate and rhythm LUNGS: no wheezes, rales, r honchi, good air movement, clear to auscultation bilaterally EXTREMITIES: abnormal finger is a lmost completely better. still with some tophi which are alll improving.
--- OUTSIDE RECORDS SUMMARY | 2025-03-13 11:27 | XMS_ITS | Patient Health Record ---
Author Organization [facility] Address [address] [place] [address] Care Team Providers Care Glassware Maker Demonstrator Name Role Phone Ashkan Canales MD Primary Care Provider Derrell Landrum Unavailable [phone] Allergies No Known Allergies Reason For Referral [...] Problem Status W/U Status Risk Notes Problem 770507449 Esophageal spasm (K22.4) Active confirmed Problem 080315045 Gastroesophageal reflux disease, unspecified whether esophagitis present (K21.9) Active confirmed Plan Of Treatment No Information Insurance Providers Payer Name Payer Address Payer Phone Subscriber Number Group Number Insured Name Patient Relationship to Insured Coverage Start Date Coverage End Date [employer]LE[employer]ANDRO [employer] MEDICARE RAILROAD MEDICARE [address] [address] [place] [address] [id number] STELLA RIOS Self - patient is the insured [employer] ATTN CLAIMS [address] [place] [address] [id number] GABRIEL STELLA Self - patient is the insured Medical (General) History Medical History History ICD Code Bladder cancer--treated via cystoscopy w [facility] Dr. Jovel Hypertension Kidney stones Denies OR,DM,CVA,Lung disease,renal dise ase Colonoscopy and upper endo with me in 14 05 Colonoscopy in approx 2017 at [facility] He describes a negative card iac workup with stress test at [facility] in 01/2023 Surgical History Surgery Date(Month/Year)
== END 2025-03-13 10:50 | disposition home or self-care (01) ==
LOC: HO.LNP 10:49
PROVIDERS: Visit Provider Internal Medicine
DX: Z87.39 Personal history of other diseases of the musculoskeletal system and connective tissue (principal)
CPT/HCPCS: 80076; 84550